=== PATIENT | female | born 1980 | race Caucasian/White ===

== ENCOUNTER 2018-03-18 17:18 | Emergency (ER) | payer OTHER ==
[2018-03-18 18:20] LABS: Absolute Lymphocytes (CBC) 3.2 K/uL (0.7-4.9); Absolute Monocytes 0.5 K/uL (0.1-1.3); Absolute Neutrophil 6.9 K/uL (1.8-8.0); Basophils % 1.6 % (0-1.3); Eosinophils % 3.2 % (0-4.4); Hematocrit 46.2 % (36.0-45.0); Lymphocytes % 28.7 % (15.3-44.8); MCV 95.7 fL (80-100); MPV 9.1 fL (7.6-11.3); Monocytes % 4.4 % (3.3-12.3); RBC Red Blood Cell Count 4.83 M/uL (3.86-4.86)
[2018-03-18 18:24] LABS: Protime INR 1.03
[2018-03-18 18:27] LABS: Barbiturates NEGATIVE; Benzodiazepines NEGATIVE; Cocaine NEGATIVE; METHAMPHETAM NEGATIVE; Opiates NEGATIVE; Phencyclidine NEGATIVE; THC Cannibis POSITIVE
[2018-03-18 18:28] LABS: Bicarbonate 26 mEq/L (21-31); Glucose Level 98 mg/dL (65-120); Potassium 3.5 mEq/L (3.6-5.0); Sodium Level 140 mEq/L (135-145)
[2018-03-18 18:34] LABS: ALT/SGPT 9 IU/L (10-60); AST/SGOT 13 IU/L (10-42); Albumin 3.8 g/dL (3.2-5.5); Alkaline Phosphatase 68 IU/L (42-121); BUN Blood Urea Nitrogen 11 mg/dL (6-20); Bilirubin Direct 0.1 mg/dL (0-0.2); Bilirubin Total 0.4 mg/dL (0.3-1.2); Protein, Total 6.6 g/dL (6.0-8.3)
[2018-03-18 18:40] LABS: Salicylates Level < 4.0 mg/dl (<30)
[2018-03-18 18:41] LABS: Alcohol Serum/Plasma < 10 mg/dl
[2018-03-18 18:43] LABS: Urine Blood NEGATIVE (NEG); Urine Glucose NEGATIVE (NEG); Urine Protein NEGATIVE (NEG); Urine Specific Gravity 1.025 (1.005-1.030)
[2018-03-18] MEDS ORDERED: POTASSIUM 25 MEQ EFFERV TAB ONE (18:52)
--- NOTE | 2018-03-19 00:49 | EDPHYS ---
Physician Documentation [facility] Name: Sade Mckeon Age: 37 yrs Sex: Female : 1980 Arrival Date: 03/18/2018 Time: 17:23 Bed 19 Private MD: Demetrio Beal ED Physician Rm Clemente HPI: 03/18 17:53 This 37 yrs old Female presents to ER via Ambulatory with complaints of Psych coleen Problem. 17:53 The patient presents to the emergency department with depression, over unknown coleen circumstances, suicide ideation. Onset: The symptoms/episode began/occurred 3 day(s) ago. Past psychiatric history: Prior diagnosis: bipolar disorder, schizophrenia, Psychiatric medications include: none. Associated signs and symptoms: The patient has no apparent associated signs or symptoms. Severity of symptoms: At their worst the symptoms were mild moderate in the emergency department the symptoms are unchanged. The patient has experienced similar episodes in the past, a few times. 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 - Social history:: Smoking status: Patient uses tobacco products, smokes one pack cigarettes per day. - Family history:: not pertinent. ROS: 17:53 Constitutional: Negative for fever, chills, and weight loss, Eyes: Negative for injury, coleen pain, redness, and discharge, ENT: Negative for injury, pain, and discharge, Neck: Negative for injury, pain, and swelling, Cardiovascular: Negative for chest pain, palpitations, and edema, Respiratory: Negative for shortness of breath, cough, wheezing, and pleuritic chest pain, Abdomen/GI: Negative for abdominal pain, nausea, vomiting, diarrhea, and constipation, Back: Negative for injury and pain, : Negative for injury, bleeding, discharge, and swelling, MS/Extremity: Negative for injury and deformity, Skin: Negative for injury, rash, and discoloration, Neuro: Negative for headache, weakness, numbness, tingling, and seizure, Allergy/Immunology: Negative for hives, rash, and allergies, Endocrine: Negative for neck swelling, polydipsia, polyuria, polyphagia, and marked weight changes, Hematologic/Lymphatic: Negative for swollen nodes, abnormal bleeding, and unusual bruising. 17:53 Psych: Positive for anxiety, depression, insomnia, suicidal ideation. Exam: 17:53 Constitutional: This is a well developed, well nourished patient who is awake, alert, coleen and in no acute distress. Head/Face: Normocephalic, atraumatic. Eyes: Pupils equal round and reactive to light, extra-ocular motions intact. Lids and lashes normal. Conjunctiva and sclera are non-icteric and not injected. Cornea within normal limits. Periorbital areas with no swelling, redness, or edema. ENT: Nares patent. No nasal discharge, no septal abnormalities noted. Tympanic membranes are normal and external auditory canals are clear. Oropharynx with no redness, swelling, or masses, exudates, or evidence of obstruction, uvula midline. Mucous membranes moist. Neck: Trachea midline, no thyromegaly or masses palpated, and no cervical lymphadenopathy. Supple, full range of motion without nuchal rigidity, or vertebral point tenderness. No Meningismus. Chest/axilla: Normal chest wall appearance and motion. Nontender with no deformity. No lesions are appreciated. Cardiovascular: Regular rate and rhythm with a normal S1 and S2. No gallops, murmurs, or rubs. Normal PMI, no JVD. No pulse deficits. Respiratory: Lungs have equal breath sounds bilaterally, clear to auscultation and percussion. No rales, rhonchi or wheezes noted. No increased work of breathing, no retractions or nasal flaring. Abdomen/GI: Soft, non-tender, with normal bowel sounds. No distension or tympany. No guarding or rebound. No evidence of tenderness throughout. Back: No spinal tenderness. No costovertebral tenderness. Full range of motion. Skin: Warm, dry with normal turgor. Normal color with no rashes, no lesions, and no evidence of cellulitis. MS/ Extremity: Pulses equal, no cyanosis. Neurovascular intact. Full, normal range of motion. Neuro: Awake and alert, GCS 15, oriented to person, place, time, and situation. Cranial nerves II-XII grossly intact. Motor strength 5/5 in all extremities. Sensory grossly intact. Cerebellar exam normal. Normal gait. Psych: Awake, alert, with orientation to person, place and time. Behavior, mood, and affect are within normal limits. Vital Signs: 17:33 BP 147 / 70; Pulse 82; Resp 19; Temp 98.8; Pulse Ox 100% on R/A; Weight 49.9 kg; Height la1 5 ft. 8 in. (172.72 cm); 19:19 BP 149 / 76; Pulse 59; Resp 16 S; Pulse Ox 98% on R/A; bb 22:37 BP 118 / 65 RA Supine (auto/reg); Pulse 61; Resp 16; Pulse Ox 97% on R/A; Pain 0/10; cc 03/19 01:07 BP 119 / 64; Pulse 62; Resp 16 S; Temp 98.9(O); Pulse Ox 96% on R/A; bb 03/18 17:33 Body Mass Index 16.73 (49.90 kg, 172.72 cm) la1 MDM: 03/18 17:40 Patient medically screened. [facility] 17:54 Data reviewed: vital signs, nurses notes, lab test result(s), EKG. [facility] 03/18 17:53 Order name: Acetaminophen [facility] 03/18 17:53 Order name: Basic Metabolic Panel [facility] 03/18 17:53 Order name: CBC with Diff; Complete Time: 18:41 [facility] 03/18 17:53 Order name: ETOH Level; Complete Time: 18:42 [facility] 03/18 17:53 Order name: Hepatic Function; Complete Time: 18:42 [facility] 03/18 17:53 Order name: PT-INR; Complete Time: 18:41 [facility] 03/18 17:53 Order name: Ptt, Activated; Complete Time: 18:41 [facility] 03/18 17:53 Order name: Salicylate; Complete Time: 18:42 [facility] 03/18 17:53 Order name: Urine Drug Screen; Complete Time: 18:41 [facility] 03/18 17:53 Order name: Acetaminophen Level; Complete Time: 18:42 [facility] 03/18 17:53 Order name: Basic Metabolic Panel; Complete Time: 18:42 [facility] 03/18 18:40 Order name: Urine Dipstick--Ancillary (enter results); Complete Time: 00:20 03/18 17:53 Order name: Urine Test (obtain specimen); Complete Time: 18:47 [facility] 03/18 17:53 Order name: EKG - Nurse/Tech; Complete Time: 18:47 [facility] 03/18 17:53 Order name: IV Saline Lock; Complete Time: 18:47 [facility] 03/18 17:53 Order name: Labs collected and sent; Complete Time: 18:47 [facility] 03/18 17:53 Order name: Urine Dipstick-Ancillary (obtain specimen); Complete Time: 18:47 [facility] Administered Medications: 18:47 Drug: Potassium Effervescent Tablet 25 mEq Route: PO; 19:19 Follow up: Response: No adverse reaction bb Disposition: 03/19/18 00:49 Transfer ordered to Psych Facility. Diagnosis is Suicidal ideations. - Reason for transfer: Higher level of care. - Accepting physician is [facility]. - Condition is Stable. - Problem is new. - Symptoms are unchanged. Signatures: Dispatcher [employer] EDMichelle Mitchell RN RN ch Anderson, Corey, MD MD cha Ballard, Brenda, RN RN bb Attema, Lee, RN RN la1 Rm Landaverde PA PA cp Corrections: (The following items were deleted from the chart) 03/19 00:52 00:49 03/19/2018 00:49 Transfer ordered to Psych Facility. Diagnosis is Suicidal cp ideations. Reason for transfer: Higher level of care. Accepting physician is psych. Condition is Stable. Problem is new. Symptoms are unchanged. cp 01:10 00:52 03/19/2018 00:49 Transfer ordered to Psych Facility. Diagnosis is Suicidal bb ideations. Reason for transfer: Higher level of care. Accepting physician is [facility]. Condition is Stable. Problem is new. Symptoms are unchanged. cp
--- NOTE | 2018-03-19 00:49 | ER ---
Nurse's Notes [facility] Name: Sade Mckeon Age: 37 yrs Sex: Female : 1980 Arrival Date: 03/18/2018 Time: 17:23 Bed 19 Private MD: Demetrio Beal Diagnosis: Suicidal ideations Presentation: 03/18 17:31 Presenting complaint: Patient states: I have been feeling very irritable and anxious la1 and I dont know why or for how long. Pt states she has been having thoughts of hurting herself lately but denies having a plan. Transition of care: patient was not received from another setting of care. Onset of symptoms was March 18, 2018. Initial Sepsis Screen: Does the patient meet any 2 criteria? No. Patient's initial sepsis screen is negative. Does the patient have a suspected source of infection? No. Patient's initial sepsis screen is negative. Care prior to arrival: None. 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 - Social history:: Smoking status: Patient uses tobacco products, smokes one pack cigarettes per day. - Family history:: not pertinent. Screenin:19 Abuse screen: Denies threats or abuse. Nutritional screening: No deficits noted. bb Tuberculosis screening: No symptoms or risk factors identified. Fall Risk None identified. Assessment: 19:19 General: Appears in no apparent distress. slender, Behavior is flat, Reports pt states bb she is feeling uncomfortable states her family brought her here and she is not sure why pt states she has tried to hurt herself in the past but does not respond to further questions. Pain: Denies pain. Neuro: Level of Consciousness is awake, alert, Oriented to person, place, time, situation. Cardiovascular: No deficits noted. Respiratory: Airway is patent Respiratory effort is even, unlabored, Respiratory pattern is regular. GI: No deficits noted. No signs and/or symptoms were reported involving the gastrointestinal system. Derm: Skin is pink, warm \T\ dry. Musculoskeletal: Circulation, motion, and sensation intact. 21:22 Reassessment: Patient and/or family updated on plan of care and expected duration. Pain bb level reassessed. Patient is alert, oriented x 3, equal unlabored respirations, skin warm/dry/pink. [facility] completed evaluation, family returned to bedside. 23:20 Reassessment: pt appears to be sleeping, eyes closed, resp unlabored, family at bedside, sitter at bedside, pt awaiting transfer to psychiatric facility for further evaluation and treatment. 23:53 Reassessment: nurse to nurse given to Julita BOWLING at [facility]. bb 03/19 00:02 Reassessment: nurse to nurse given to Ginna BOWLING with [facility]. bb 01:08 Reassessment: Patient is alert, oriented x 3, equal unlabored respirations, skin bb warm/dry/pink. EMS at bedside for transfer of pt to [facility], pt is cooperative transferred to [facility] unassisted. Psych: 03/18 17:33 Subjective: Patient's mood is sad, Delusions are denied, Hallucinations are denied la1 Having thoughts of suicide. Objective: Patient is cooperative, Speech is normal, Affect is appropriate. Interventions: Patient placed in hospital gown. Suicide Risk Assessment: Sad Person Scale: Sex of patient: Female: Score 0 points. Age of patient: Score 0 point if patient falls outside of specified age parameters. Depression: Score 1 point if signs of depression are present. Previous Attempt: Score 1 point if patient has previously attempted suicide. Substance Abuse: Score 0 point if patient does not abuse alcohol or drugs. Rational Thinking: Score 1 point if patient is lacking rational thinking. Social Support: Score 0 if social support is present/available. Organized Plan: Score 0 if patient did not have an organized plan in place. Relationship: Score 0 point if patient has a spouse or domestic partner. Chronic Sickness: Score 0 point if patient does not have a chronic illness, debilitating, or severe disorder. Safety Checks: Door is open. Pt denies substance abuse. Commitment: Patient will be a voluntary commitment. Vital Signs: 17:33 BP 147 / 70; Pulse 82; Resp 19; Temp 98.8; Pulse Ox 100% on R/A; Weight 49.9 kg; Height la1 5 ft. 8 in. (172.72 cm); 19:19 BP 149 / 76; Pulse 59; Resp 16 S; Pulse Ox 98% on R/A; bb 22:37 BP 118 / 65 RA Supine (auto/reg); Pulse 61; Resp 16; Pulse Ox 97% on R/A; Pain 0/10; cc 03/19 01:07 BP 119 / 64; Pulse 62; Resp 16 S; Temp 98.9(O); Pulse Ox 96% on R/A; bb 03/18 17:33 Body Mass Index 16.73 (49.90 kg, 172.72 cm) la1 ED Course: 03/18 17:23 Patient arrived in ED. sb2 17:23 Demetrio Beal MD is Private Physician. sb2 17:32 Triage completed. la1 17:33 Arm band placed on left wrist. la1 17:40 Rm Clemente MD is Attending Physician. coleen 17:55 Michelle Ibarra, DASH is Primary Nurse. ch 18:11 [facility] was called and spoke to Nahed she will pass the message on. ag 18:45 [facility] called and said they would be here in a couple of hours. 19:00 Safety Checks: Personal items have been removed The door is open or patient has been bb placed in a hallway bed/chair. A family member and/or friend is present and encouraged to stay family at bedside. 19:15 Safety Checks: Personal items have been removed The door is open or patient has been bb placed in a hallway bed/chair. There are no family/friend visitors at this time family states they are going outside. 19:15 Safety checks: Items removed: yes. Door open/sign placed on door: yes. Family/friend cc present: yes. 19:19 Patient has correct armband on for positive identification. Placed in gown. Bed in low bb position. Call light in reach. sitter at bedside. Patient is placed in psych hold. 19:30 Safety checks: Items removed: yes. Door open/sign placed on door: yes. Family/friend cc present: yes. 19:45 Safety checks: Items removed: yes. Door open/sign placed on door: yes. Family/friend cc present: yes. 20:00 Safety checks: Items removed: yes. Door open/sign placed on door: yes. Family/friend cc present: yes. 20:15 Safety checks: Items removed: yes. Door open/sign placed on door: yes. Family/friend cc present: yes. 20:29 Safety checks: Items removed: yes. Door open/sign placed on door: yes. Family/friend cc present: yes. 20:45 Safety checks: Items removed: yes. Door open/sign placed on door: yes. Family/friend cc present: yes. 20:52 [place] screener at bedside. cc 21:00 Safety checks: Items removed: yes. Door open/sign placed on door: no. Family/friend cc present: no. Door closed while [place] Screener is evaluating patient. 21:15 Safety checks: Items removed: yes. Door open/sign placed on door: no. Family/friend cc present: no. [place] screener at bedside evaluating patient. 21:30 Safety checks: Items removed: yes. Door open/sign placed on door: yes. Family/friend cc present: yes. 21:45 Safety checks: Items removed: yes. Door open/sign placed on door: yes. Family/friend cc present: yes. 22:00 Safety checks: Items removed: yes. Door open/sign placed on door: yes. Family/friend cc present: yes. 22:10 [facility] at bedside. cc 22:14 Safety checks: Items removed: yes. Door open/sign placed on door: yes. Family/friend cc present: no. 22:30 Safety checks: Items removed: yes. Door open/sign placed on door: yes. Family/friend cc present: yes. 22:45 Safety checks: Items removed: yes. Door open/sign placed on door: yes. Family/friend cc present: yes. 23:00 Safety checks: Items removed: yes. Door open/sign placed on door: yes. Family/friend cc present: yes. 23:14 Safety checks: Items removed: yes. Door open/sign placed on door: yes. Family/friend cc present: yes. 23:30 Safety checks: Items removed: yes. Door open/sign placed on door: yes. Family/friend cc present: yes. 23:45 Safety checks: Items removed: yes. Door open/sign placed on door: yes. Family/friend cc present: yes. 23:56 Puma Veliz (son) contact number- [phone]; Juan Heard (brother) [phone].cc 03/19 00:00 Safety checks: Items removed: yes. Door open/sign placed on door: yes. Family/friend cc present: no. 00:15 Safety checks: Items removed: yes. Door open/sign placed on door: yes. Family/friend cc present: no. 00:19 [facility] aleksandra 00:30 Safety checks: Items removed: yes. Door open/sign placed on door: yes. Family/friend cc present: no. 00:45 Safety checks: Items removed: yes. Door open/sign placed on door: yes. Family/friend cc present: no. 01:01 No provider procedures requiring assistance completed. IV discontinued, intact, bb bleeding controlled, No redness/swelling at site. Pressure dressing applied. Administered Medications: 03/18 18:47 Drug: Potassium Effervescent Tablet 25 mEq Route: PO; 19:19 Follow up: Response: No adverse reaction bb Outcome: 03/19 00:49 ER care complete, transfer ordered by . cp 01:09 Transferred by ground EMS Transfer form completed. bb 01:09 Condition: stable 01:09 Instructed on the need for transfer. 01:10 Patient left the ED. bb Signatures: Michelle Ibarra, DASH RN Rm Jimenez MD MD cha Ballard, Brenda, RN RN bb Christian, Chelsea cc Denzel Petersen RN RN la1 Giana Mari Corey, PA PA cp Billeau, Sheri sb2 Corrections: (The following items were deleted from the chart) 03/18 23:58 23:56 Puma Veliz (son) contact number- [phone] cc cc 03/19 01:00 00:02 Reassessment: nurse to nurse given to Ginna BOWLING with [facility] bb bb
[2018-03-19 01:36] VITALS: BP 119/64; TEMP 98.9; O2SAT 96
== END 2018-03-19 01:10 ==
LOC: ER 17:18
DX: R45.851 Suicidal ideations (principal); F17.210 Nicotine dependence, cigarettes, uncomplicated; F31.9 Bipolar disorder, unspecified; Z88.0 Allergy status to penicillin; Z88.2 Allergy status to sulfonamides; Z91.048 Other nonmedicinal substance allergy status
CPT/HCPCS: 36415; 80048; 80076; 80307; 80320; 80329; 81003; 85025; 85610; 85730; 99285

== ENCOUNTER 2024-10-22 17:40 | Inpatient (IN) | payer OTHER ==
--- OUTSIDE RECORDS SUMMARY | 2024-10-22 17:43 | XMS REPORT | Continuity of Care Document ---
Author Name Unknown Address [address] [facility] [address] [place] [address] [facility] Address [address] [facility]. 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 Role Phone Demetrio Beal Primary Care Physician [phone] Patricia Davison MD Attending Clinician [phone] CARLEY REYNA Attending Clinician Unavailable Carley Stacy Attending Clinician + [phone] Carley Stacy Attending Clinician + [phone] Patricia Davison MD Attending Clinician [phone] SERGIO DO Attending Clinician Unavaila ble [facility] Attending Clinician Unavailable Sergio Do MD Attending Clinician [phone] Doctor Unassigned, [place] Attending Clinician U navailable Lab, Ang - Db Attending Clinician Unavailable Marie FENTON Attending Clinician Unavailable Marie Dominguez Attending Clinician + [phone] David Hamilton Attending Clinician [phone] Toya Leo Attending Clinician [phone] TOYA THORNTON Attending Clinician Unavailable Payers Payer Name Policy Type Policy Number Effective Date Expirati on Date Source [facility] PL[facility] [id number] 00:00:00 [facility] [id number] 2022 00:00:00 Problems Condition Name Condition Details Condition Category Status Onset Date Resolution Date Last Treatment Date Treating Clinician Comments Source Bipolar I disorder, most recent episode (or current) depressed, severe, without mention of psychotic behavior Bipolar I disorder, most recent episode (or current) depressed, severe, without mention of psychotic behavior Disease Active 07-09 00:00: 00 [facility] Bipolar I disorder, most recent episode (or current) depressed, severe, specified as with psychotic behavior Bipolar I disorder, most recent episode (or current) depressed, severe, specified as with psychotic behavior Disease Active 01-05 00:00: 00 [facility] Allergies, Adverse Reactions, Alerts Allergy Name Allergy Type Status Severity Reaction(s) Onset Date Inactive Date Treating Clinician Comments Source VENLAFAX INE HCL DRUG INGREDI Active Anxiety 01-05 00:00: 00 [facility] IODINE DRUG INGREDI Active Unknown-Cmnt 01-05 00:00: 00 [facility] PENICILL INS Drug Class Active Unknown-Cmnt 01-05 00:00: 00 [facility] SULFA (SULFONA MIDE ANTIBIOT ICS) Drug Class Active Unknown-Cmnt 01-05 00:00: 00 [facility] Penicill ins Propensi ty to adverse reaction s Active Unknown - See comments 01-05 00:00: 00 Had reaction as a child. Doesn't remember what. [facility] Sulfa (Sulfona mide Antibiot ics) Propensi ty to adverse reaction s Active Unknown - See comments 01-05 00:00: 00 As a child [facility] Venlafax ine Hcl Propensi ty to adverse reaction s Active Anxiety 01-05 00:00: 00 [facility] Iodine Propensi ty to adverse reaction s Active Unknown - See comments 01-05 00:00: 00 [facility] Penicill ins Propensi ty to adverse reaction s Active Unknown - See comments 01-05 00:00: 00 Had reaction as a child. Doesn't remember what. [facility] Sulfa (Sulfona mide Antibiot ics) Propensi ty to adverse reaction s Active Unknown - See comments 01-05 00:00: 00 As a child [facility] Social History Social Habit Start Date Stop Date Quantity Comments Source Gender [facility] History of tobacco use Cigarette Smoker [facility] Exposure to SARS-CoV-2 (event) Not sure [facility] History of Social function 2024-10-10 00:00:00 2024-10-10 00:00:00 [facility] Alcoholic beverage intake 2024-10-10 00:00:00 2024-10-10 00:00:00 Ex-drinker (finding) [facility] Cigarettes smoked current (pack per day) - Reported 2024-05-08 00:00:00 2024-05-08 00:00:00 [facility] Cigarette pack-years 2024-05-08 00:00:00 2024-05-08 00:00:00 [facility] Tobacco use and exposure 2024-05-08 00:00:00 2024-05-08 00:00:00 Smokeless tobacco non-user [facility] Alcohol intake 2024-01-25 00:00:00 2024-01-25 00:00:00 Ex-drinker (finding) [facility] Sex assigned at 1980 00:00:00 1980 00:00:00 [facility] Smoking Status Start Date Stop Date Source Smokes tobacco daily 2024-05-08 00:00:00 [facility] Tobacco smoking consumption unknown [facility] Medications Ordered Medication Name Filled Medication Name Start Date Stop Date Current Medication? Ordering Clinician Indication Dosage Frequency Signature (SIG) Comments Components Source clindamycin 300 mg capsule 2023-10 00:00: 00 Yes [id number] 300mg Take 1 capsule by mouth 4 (four) times daily. [facility] SERTraline (ZOLOFT) 100 mg tablet 05-08 12:44: 50 Yes 200mg Take 2 tablets by mouth in the morning. [facility] clindamycin 300 mg capsule 05-08 00:00: 00 05-16 04:59 :00 No [id number] 300mg Take 1 capsule by mouth 4 (four) times daily for 7 days. [facility] azelastine 137 mcg (0.1 %) nasal spray 11-17 00:00: 00 Yes [id number] 1{spray } Use 1 [place] in each nostril in the morning and 1 [place] in the evening. Use in each nostril as directed [facility] montelukast 10 mg tablet 11-17 00:00: 00 Yes [id number] 10mg Take 1 tablet by mouth in the morning. [facility] OLANZapine 10 mg tablet 11-02 00:00: 00 Yes 10mg Take 1 tablet by mouth at bedtime. [facility] AMBIEN ORAL 11-01 09:04: 45 11-01 00:00 :00 No None Entered [facility] ATIVAN ORAL 11-01 09:04: 39 11-01 00:00 :00 No None Entered [facility] LITHIUM ASPARTATE ORAL 11-01 09:04: 33 11-01 00:00 :00 No None Entered [facility] GEODON ORAL 11-01 09:03: 49 11-01 00:00 :00 No None Entered [facility] COUMADIN ORAL 11-01 09:03: 31 11-01 00:00 :00 No None Entered [facility] SERTraline (ZOLOFT) 100 mg tablet 11-01 09:03: 10 Yes 200mg Take 2 tablets by mouth in the morning. [facility] Omeprazole 20 mg tablet 11-01 00:00: 00 Yes [id number] 20mg Take 1 tablet by mouth in the morning. [facility] omeprazole 20 mg capsule 11-01 00:00: 00 Yes TAKE 1 CAPSULE BY MOUTH IN THE MORNING [facility] ibuprofen 600 mg tablet 30 00:00: 00 11-01 00:00 :00 No [id number] 600mg Take 1 tablet by mouth every 6 (six) hours as needed for Pain (scale 4-6). [facility] clindamycin 150 mg capsule 830 00:00: 00 07-09 04:59 :00 No [id number] 300mg Take 2 capsules by mouth 4 (four) times daily for 10 days. [facility] clindamycin (CLEOCIN) injection 600 mg 04-05 17:15: 00 04-05 16:48 :00 No 600mg 600 mg, Intramuscu lar, ONCE, 1 dose, 04/05/21 at 1215, YUNIOR
Re ason for Anti-Infec tive: Documented Infection< br>Documen rochelle Infection Site: Other
O ther site: tooth
D uration of Therapy: 7 days
Re stricted use approved by: ED PROVIDER<b r>Indicati on for Clindamyci n use: tooth infection [facility] acetaminoph en (TYLENOL) tablet 1,000 mg 04-05 17:15: 00 04-05 16:45 :00 No 1000mg 1,000 mg, Oral, ONCE, 1 dose, 04/05/21 at 1215, Routine [facility] ibuprofen 800 mg tablet 04-05 00:00: 00 11-01 00:00 :00 No [id number] 800mg Take 1 tablet by mouth every 6 (six) hours as needed for Pain (scale 4-6). [facility] clindamycin 300 mg capsule 04-05 00:00: 00 04-13 04:59 :00 No [id number] 300mg Take 1 capsule by mouth 4 (four) times daily for 7 days. [facility] clindamycin in 5 % dextrose (CLEOCIN) 600 mg/50 mL IV piggyback RTU 600 mg 01-05 20:30: 00 01-05 20:09 :00 No 600mg 600 mg, IV Piggyback, ONCE, 1 dose, 01/05/21 at 1430, 50 mL
Reas on for Anti-Infec tive: Documented Infection< br>Documen rochelle Infection Site: HEENT
D uration of Therapy: Other (see Comments)< br>Restric rochelle use approved by: ED PROVIDER<b r>Indicati on for Clindamyci n use: dental abscess [facility] proMETHazin e (PHENERGAN) tablet 25 mg 01-05 20:30: 00 01-05 19:40 :00 No 25mg 25 mg, Oral, ONCE, 1 dose, 01/05/21 at 1430, YUNIOR [facility] FENTanyl PF (SUBLIMAZE (PF)) injection 50 mcg 01-05 20:30: 00 01-05 19:40 :00 No 50ug 50 mcg, Slow IV Push, ONCE, 1 dose, 01/05/21 at 1430, Routine [facility] dexamethaso ne (DECADRON PHOSPHATE) injection 10 mg 01-05 20:30: 00 01-05 19:40 :00 No 10mg 10 mg, IV Push, ONCE, 1 dose, 01/05/21 at 1430, STAT [facility] chlorhexidi ne 0.12 % mouthwash 01-05 00:00: 00 11-01 00:00 :00 No [id number] 15mL Swish and spit out 15 mL 2 (two) times daily. [facility] clindamycin 150 mg capsule 01-05 00:00: 01-16 04:59 :00 No [id number] 450mg Take 3 capsules by mouth 3 (three) times daily for 10 days. [facility] acetaminoph en-codeine 300-30 mg tablet 01-05 00:00: 00 01-13 04:59 :00 No [id number] 1{tbl} Take 1 tablet by mouth every 6 (six) hours as needed for Pain (scale 7-10) for up to 7 days. Indication s: acute pain [facility] ketorolac (TORADOL) injection 60 mg 2019-10 00:30: 00 08-30 23:36 :00 No 60mg 60 mg, Intramuscu lar, ONCE, 1 dose, 08/30/20 at 1830, [facility]UNIOR
[facility] Restricted medication : Marie FENTON [facility] clindamycin (CLEOCIN HCL) capsule 300 mg 2019-10 00:30: 00 08-30 23:35 :00 No 300mg 300 mg, Oral, ONCE, 1 dose, 08/30/20 at 1830, YUNIOR
Re ason for Anti-Infec tive: Documented Infection< br>Documen rochelle Infection Site: HEENT
D uration of Therapy: 10 days
Re stricted use approved by: ADC PROVIDER [facility] ibuprofen 600 mg tablet 2019-10 00:00: 00 11-01 00:00 :00 No [id number] 600mg Take 1 tablet by mouth every 6 (six) hours as needed for Pain (scale 4-6). [facility] clindamycin 150 mg capsule 2019-10 00:00: 00 09-10 05:59 :00 No [id number] 300mg Take 2 capsules by mouth 4 (four) times daily for 10 days. [facility] GEODON ORAL 2014-10 18:20: 48 Yes None Entered [facility] AMBIEN ORAL 2014-10 18:20: 48 Yes None Entered [facility] COUMADIN ORAL 2014-10 18:20: 48 Yes None Entered [facility] ATIVAN ORAL 2014-10 18:20: 48 Yes None Entered [facility] LITHIUM ASPARTATE ORAL 2014-10 18:20: 48 Yes None Entered [facility] COUMADIN ORAL 2014-10 12:20: 48 Yes None Entered [facility] ZIPRASIDONE HCL 40 MG ORAL CAP 07-11 00:00: 00 Yes 1 Cap Oral BID MEALS [facility] QUETIAPINE 25 MG ORAL TAB 07-11 00:00: 00 11-01 00:00 :00 No 1 Tab Oral TIDPRN [facility] ESCITALOPRA M 10 MG ORAL TAB 07-11 00:00: 00 11-01 00:00 :00 No 3 tabs oral daily [facility] Vital Signs Vital Name Observation Time Observation Value Comments S ource Systolic blood pressure 2024-10-10 21:20:00 108 mm[Hg] [facility] Diastolic blood pressure 2024-10-10 21:20:00 72 mm[Hg] [facility] Heart rate 2024-10-10 21:20:00 71 /min [facility] Body temperature 2024-10-10 21:20:00 36.89 Deb [facility] Body height 2024-10-10 21:20:00 172.7 cm [facility] Body weight 2024-10-10 21:20:00 70.761 kg [facility] BMI 2024-10-10 21:20:00 23.72 kg/m2 [facility] Oxygen saturation in Arterial blood by Pulse oximetry 2024-10-10 21:20:00 97 /min [facility] Systolic blood pressure 2024-05-08 17:45:00 114 mm[Hg] [facility] Diastolic blood pressure 2024-05-08 17:45:00 68 mm[Hg] [facility] Heart rate 2024-05-08 17:45:00 61 /min [facility] Body temperature 2024-05-08 17:45:00 36.83 Deb [facility] Respiratory rate 2024-05-08 17:45:00 18 /min [facility] Body height 2024-05-08 17:45:00 172.7 cm [facility] Body weight 2024-05-08 17:45:00 78.472 kg [facility] BMI 2024-05-08 17:45:00 26.30 kg/m2 [facility] Oxygen saturation in Arterial blood by Pulse oximetry 2024-05-08 17:45:00 96 /min [facility] Systolic blood pressure 2024-01-25 14:41:00 126 mm[Hg] [facility] Diastolic blood pressure 2024-01-25 14:41:00 57 mm[Hg] [facility] Heart rate 2024-01-25 14:41:00 73 /min [facility] Body temperature 2024-01-25 14:41:00 36 Deb [facility] Respiratory rate 2024-01-25 14:41:00 17 /min [facility] Body height 2024-01-25 14:41:00 172.7 cm [facility] Body weight 2024-01-25 14:41:00 80.74 kg [facility] BMI 2024-01-25 14:41:00 27.06 kg/m2 [facility] Oxygen saturation in Arterial blood by Pulse oximetry 2024-01-25 14:41:00 97 /min [facility] Systolic blood pressure 2023-11-17 19:53:00 124 mm[Hg] [facility] Diastolic blood pressure 2023-11-17 19:53:00 76 mm[Hg] [facility] Heart rate 2023-11-17 19:53:00 69 /min [facility] Body temperature 2023-11-17 19:53:00 36.5 Deb [facility] Body height 2023-11-17 19:53:00 172.7 cm [facility] Body weight 2023-11-17 19:53:00 79.334 kg [facility] BMI 2023-11-17 19:53:00 26.59 kg/m2 [facility] Oxygen saturation in Arterial blood by Pulse oximetry 2023-11-17 19:53:00 98 /min [facility] Systolic blood pressure 2023-11-01 14:53:00 124 mm[Hg] [facility] Diastolic blood pressure 2023-11-01 14:53:00 76 mm[Hg] [facility] Heart rate 2023-11-01 14:53:00 85 /min [facility] Body temperature 2023-11-01 14:53:00 36.67 Deb [facility] Respiratory rate 2023-11-01 14:53:00 18 /min [facility] Body height 2023-11-01 14:53:00 172.7 cm [facility] Body weight 2023-11-01 14:53:00 80.695 kg [facility] BMI 2023-11-01 14:53:00 27.05 kg/m2 [facility] Oxygen saturation in Arterial blood by Pulse oximetry 2023-11-01 14:53:00 97 /min [facility] Systolic blood pressure 2023-06-28 13:22:00 141 mm[Hg] [facility] Diastolic blood pressure 2023-06-28 13:22:00 70 mm[Hg] [facility] Heart rate 2023-06-28 13:22:00 78 /min [facility] Body temperature 2023-06-28 13:22:00 36.72 Deb [facility] Respiratory rate 2023-06-28 13:22:00 18 /min [facility] Body height 2023-06-28 13:22:00 172.7 cm [facility] Body weight 2023-06-28 13:22:00 68.04 kg [facility] BMI 2023-06-28 13:22:00 22.81 kg/m2 [facility] Oxygen saturation in Arterial blood by Pulse oximetry 2023-06-28 13:22:00 99 /min [facility] Systolic blood pressure 2021-04-05 14:51:00 116 mm[Hg] [facility] Diastolic blood pressure 2021-04-05 14:51:00 70 mm[Hg] [facility] Heart rate 2021-04-05 14:51:00 61 /min [facility] Body temperature 2021-04-05 14:51:00 37.11 Deb [facility] Respiratory rate 2021-04-05 14:51:00 16 /min [facility] Body weight 2021-04-05 14:51:00 70.353 kg [facility] BMI 2021-04-05 14:51:00 23.58 kg/m2 [facility] Oxygen saturation in Arterial blood by Pulse oximetry 2021-04-05 14:51:00 97 /min [facility] Systolic blood pressure 2021-01-05 21:14:20 102 mm[Hg] [facility] Diastolic blood pressure 2021-01-05 21:14:20 67 mm[Hg] [facility] Heart rate 2021-01-05 21:14:20 64 /min [facility] Respiratory rate 2021-01-05 21:14:20 12 /min [facility] Oxygen saturation in Arterial blood by Pulse oximetry 2021-01-05 21:14:20 98 /min [facility] Body temperature 2021-01-05 18:20:00 37.22 Deb [facility] Body weight 2021-01-05 18:20:00 77.111 kg [facility] BMI 2021-01-05 18:20:00 25.85 kg/m2 [facility] Systolic blood pressure 2020-08-30 23:11:00 123 mm[Hg] [facility] Diastolic blood pressure 2020-08-30 23:11:00 79 mm[Hg] [facility] Heart rate 2020-08-30 23:11:00 73 /min [facility] Body temperature 2020-08-30 23:11:00 37.44 Deb [facility] Respiratory rate 2020-08-30 23:11:00 16 /min [facility] Body height 2020-08-30 23:11:00 172.7 cm [facility] Body weight 2020-08-30 23:11:00 77.111 kg [facility] BMI 2020-08-30 23:11:00 25.85 kg/m2 [facility] Oxygen saturation in Arterial blood by Pulse oximetry 2020-08-30 23:11:00 96 /min [facility] Procedures Procedure Date / Time Performed Performing Clinicia n Source LIPASE 2023-11-01 15:25:00 Carley Reyna [facility] COMP. METABOLIC PANEL ([id number]) 2023-11-01 15:25:00 Carley Reyna [facility] CBC WITH DIFF 2023-11-01 15:25:00 Carley Reyna [facility] POCT TEST 2023-11-01 15:16:00 Carley Reyna [facility] CONSENT/REFUSAL FOR DIAGNOSIS AND TREATMENT 2023-11-01 14:18:58 Doctor Unassigned, [place] [facility] CONSENT/REFUSAL FOR DIAGNOSIS AND TREATMENT 2023-06-28 13:13:25 Doctor Unassigned, [place] [facility] CONSENT/REFUSAL FOR DIAGNOSIS AND TREATMENT 2021-04-05 14:43:34 Doctor Unassigned, [place] [facility] CT MAXILLOFACIAL/MANDIBL E WO CONTRAST 2021-01-05 21:11:14 Toya Thornton [facility] TEST, SERUM 2021-01-05 19:29:00 Darrin Thornton [facility] COMP. METABOLIC PANEL ([id number]) 2021-01-05 19:29:00 Toya Thornton [facility] CBC WITH DIFF 2021-01-05 19:29:00 Toya Thornton [facility] NOTICE OF PRIVACY PRACTICES 2021-01-05 18:18:19 Doctor Unassigned, [place] [facility] CONSENT/REFUSAL FOR DIAGNOSIS AND TREATMENT 2021-01-05 18:17:52 Doctor Unassigned, [place] [facility] POCT TEST 2020-08-30 23:35:00 Marie Fenton [facility] Encounters Start Date/Time End Date/Time Encounter Type Admission Type Attending [facility] Care Facility Care Department Encounter ID Source 2024-10-14 00:00:00 2024-10-16 12:22:52 Telephone Patricia Davison [facility] [id number] 350.1.13.10 4.2.7.2.686 [id number] [facility] 2024-10-10 15:30:00 2024-10-10 16:02:38 Outpatient R CARLEY REYNA [facility] [id number] [facility] 2024-10-10 15:30:00 2024-10-10 16:02:38 Office Visit Carley Reyna [facility] 1..840.114 350.1.13.10 4.2.7.2.686 [id number] [facility] 2024-05-08 13:00:00 2024-05-08 13:13:31 Outpatient R CARLEY REYNA [facility] [id number] [facility] 2024-05-08 13:00:00 2024-05-08 13:13:31 Office Visit Carley Reyna [facility] 1..840.114 350.1.13.10 4.2.7.2.686 [id number] [facility] 2024-04-03 00:00:00 2024-04-04 10:18:14 Telephone Patricia Davison [facility] 1.840.114 350.1.13.10 4.2.7.2.686 [id number] [facility] 2024-02-07 00:00:00 2024-02-07 00:00:00 Outpatient R SERGIO DO [facility] [id number] [facility] 2024-01-25 10:30:00 2024-01-25 10:45:00 Die Setter Visit [facility] Sergio Do [facility] 1.840.114 350.1.13.10 4.2.7.2.686 [id number] [facility] 2024-01-25 10:00:00 2024-01-25 10:30:00 Office Visit Patricia Davison Joseph Marc [facility] 1.0.114 350.1.13.10 4.2.7.2.686 [id number] [facility] 2024-01-25 10:00:00 2024-01-25 10:00:00 Outpatient Hector SERGIO DO [facility] [id number] [facility] 2023-11-23 00:00:00 2023-11-23 00:00:00 Patient Secure Msg Doctor Unassigned, [place] [facility] 1.2840.114 350.1.13.10 4.2.7.2.686 [id number] [facility] 2023-11-21 00:00:00 2023-11-21 00:00:00 Patient Secure Msg Doctor Unassigned, [place] [facility] 1.2.840.114 350.1.13.10 4.2.7.2.686 [id number] [facility] 2023-11-20 00:00:00 2023-11-20 00:00:00 Patient Secure Msg Doctor Unassigned, [place] [facility] 1.2.840.114 350.1.13.10 4.2.7.2.686 [id number] [facility] 2023-11-17 14:30:00 2023-11-17 14:45:00 Die Setter Visit Lab, Carley Viveros [facility] 1.2.840.114 350.1.13.10 4.2.7.2.686 [id number] [facility] 2023-11-17 14:00:00 2023-11-17 14:19:47 Outpatient CARLEY ABREU [facility] [id number] [facility] 2023-11-17 14:00:00 2023-11-17 14:19:47 [facility] [id number] 350.1.13.10 4.2.7.2.686 [id number] [facility] 2023-11-08 00:00:00 2023-11-08 00:00:00 Patient Secure Msg Doctor Unassigned, [place] [facility] 1.20.114 350.1.13.10 4.2.7.2.686 [id number] [facility] 2023-11-05 00:00:00 2023-11-05 00:00:00 Telephone Carley Reyna Jona [facility] 1.284.114 350.1.13.10 4.2.7.2.686 [id number] [facility] 2023-11-01 09:30:00 2023-11-01 10:18:53 Die Setter Visit Lab, Ang - Db Carley Reyna Jona [facility] 1.284.114 350.1.13.10 4.2.7.2.686 [id number] [facility] 2023-11-01 08:00:00 2023-11-01 09:17:09 Outpatient R CARLEY REYNA [facility] [id number] [facility] 2023-11-01 08:00:00 2023-11-01 09:17:09 Office Visit Mendez Carley A [facility] [id number] 350.1.13.10 4.2.7.2.686 [id number] [facility] 2023-11-01 00:00:00 2023-11-01 00:00:00 Orders Only Doctor Unassigned, [place] [facility] 1.2.840.114 350.1.13.10 4.2.7.2.686 [id number] [facility] 2023-11-01 00:00:00 2023-11-01 00:00:00 Letter (Out) Doctor Unassigned, [place] [facility] 1.2.840.114 350.1.13.10 4.2.7.2.686 [id number] [facility] 2023-11-01 00:00:00 2023-11-01 00:00:00 Letter (Out) Doctor Unassigned, [place] [facility] 1.2.840.114 350.1.13.10 4.2.7.2.686 [id number] [facility] 2023-06-28 08:23:00 2023-06-28 09:29:00 Emergency X Marie FENTON [facility] ERT [id number] [facility] 2023-06-28 08:23:00 2023-06-28 09:29:00 Emergency Marie Fenton [facility] 1.2.840.114 350.1.13.10 4.2.7.2.686 [id number] [facility] 2021-04-05 09:53:00 2021-04-05 12:16:00 Emergency David Jaramillo [facility] [id number] [facility] 2021-04-05 09:43:00 2021-04-05 09:43:00 Emergency X [facility] ERT [id number] [facility] 2021-01-05 12:21:00 2021-01-05 16:52:00 Emergency Toya Thornton [facility] [id number] [facility] 2021-01-05 12:21:00 2021-01-05 12:21:00 Emergency X TOYA THORNTON [facility] ERT [id number] [facility] 2020-08-30 17:18:00 2020-08-30 17:52:00 Emergency Marie Fenton [facility] [id number] [facility] 2020-08-30 17:18:00 2020-08-30 17:18:00 Emergency X Marie FENTON [facility] ERT [id number] [facility] Results Test Description Test Time Test Comments Results Result Co mments Source [facility] [id number] 15:21:00* Test Item Value Reference Range Interpretation Comme nts POCT PREG (test code = 1605) Negative On board controls acceptable with C Line (test code = 3574) Yes POCT PREG LOT # (test code = 3575) POCT PREG TEST DATE ( test code = 3576) Lab Interpretation (test cod e = 74581-6) Normal [facility] CONTRAST 2021-01-05 21:20:31Impression: 1. ?No acute abnormality involving the maxillofacial region.Exam: CT MAXILLOFACIAL/MANDIBLE WO CONTRAST Clinical History: Maxillary/facial abscess Technique:Thin section CT of the maxillofacial region with multiplanarreformats Comparison: No priors Findings: The mandible is within normal limits. Bilateral zygomatic archesare within normal limits. Lateral orbital rims are normal. Lamina papyracea are within normal limits. Nasal bones are normal.Periodontal disease involves the right first maxillary molar tooth root.Included portions of the brain are within normal limits. Orbits arenormalin appearance. Skull base is within normal limits. Soft tissue windows do not demonstrate anyfocal lesions. [facility], [facility]iant Results Inft User - 01/05/2021 3:21 PM CSTExam: CT MAXILLOFACIAL/MANDIBLE WO CONTRASTClinical History: Maxillary/facial abscess Technique:Thin section CT of the maxillofacial region with multiplanarreformatsComparison: No priorsFindings: The mandible is within normal limits. Bilateral zygomatic archesare within normal limits.Lateral orbital rims are normal.Lamina papyracea are within normal limits.Nasal bones are normal.Periodontal disease involves the right first maxillary molar tooth root.Included portions of the brain are within normal limits. Orbits are normali n appearance. Skull base is within normal limits.Soft tissue windows do not demonstrate any focal lesions.IMPRESSIONImpression:1. No acute abnormality involving the maxillofacial region.[facility], [id number] 20:50:51* Test Item Value Reference Range Interpretation Comme nts PREG SERUM (test code = 3213952687) Negative DASHAWN (test code = DASHAWN) Less than 10 IU/L. ?If low titer or ectopic is suspected, resubmit specimen in 48-72 hours. [facility]. METABOLIC PANEL (13912)2021-01-05 19:58:23* Test Item Value Reference Range Interpretation Comme nts NA (test code = 0337777244) 139 mmol/L 135-145 K (test code = 9508795107) 3.8 mmol/L 3.5-5.0 CL (test code = 0305829098) 106 mmol/L 98-108 CO2 TOTAL (test code = 0448822442) 26 mmol/L 23-31 AGAP (test code = 6121893864) 2-16 BUN (test code = 0239015634) 8 mg/dL 7-23 GLUCOSE (test code = 3919187074) 106 mg/dL 70-110 CREATININE (test code = 5500687781) 0.66 mg/dL 0.50-1.04 TOTAL BILI (test code = 4216848540) 0.6 mg/dL 0.1-1.1 CALCIUM (test code = 2923034958) 9.3 mg/dL 8.6-10.6 T PROTEIN (test code = 4074438692) 7.0 g/dL 6.3-8.2 ALBUMIN (test code = 2851966159) 4.3 g/dL 3.5-5.0 ALK PHOS (test code = 1552579677) 94 U/L 34-122 ALTv (test code = 1742-6) 11 U/L 5-35 AST(SGOT) (test code = 7767267600) 17 U/L 13-40 eGFR Calculation (Non-) (test code = 3948261289) mL/min/1.73m2 eGFR Calculation () (test code = 7204730836) mL/min/1.73m2 DASHAWN (test code = DASHAWN) Association of Glomerular Filtration Rate (GFR) and Staging of Kidney Disease* + -+ + ---+| GFR (mL/min/1.73 m2) ?| With Kidney Damage ?| ?Without Kidney Damage+ -------+ ------+ ---------+| ?>90 ?| ?Stage one ?| ? Normal ?+ --+ -+ ----+| ?60-89 ?| ?Stage two ?| ? Decreased GFR ? + -+ + ---+| ?30-59 ?| ?Stage three ?| ? Stage three ? + -+ + ---+| ?15-29 ?| ?Stage four ? | ? Stage four ?+ --+ -+ ----+| ?<15 (or dialysis) ? ?| ?Stage five ? | ? Stage five ?+ --+ -+ ----+ *Each stage assumes the associated GFR level has been in effect for at least three months. ?Stages 1 to 5, with or without kidney disease, indicate chronic kidney disease. Notes: Determination of stages one and two (with eGFR >59mL/min/1.73 m2) requires estimation of kidney damage for at least three months as defined by structural or functional abnormalities of the kidney, manifested by either:Pathological abnormalities or Markers of kidney damage (including abnormalities in the composition of the blood or urine or abnormalities in imaging tests). [facility] WITH [id number] 19:43:23* Test Item Value Reference Range Interpretation Comme nts WBC (test code = 6690-2) See_Comment H [Automated message] The system which generated this result transmitted reference range: 4.30 - 11.10 10*3/?L. The reference range was not used to interpret this result as normal/abnormal. RBC (test code = 789-8) See_Comment [Automated message] The system which generated this result transmitted reference range: 3.93 - 5.25 10*6/?L. The reference range was not used to interpret this result as normal/abnormal. HGB (test code = 718-7) 14.8 g/dL 11.6-15.0 HCT (test code = 4544-3) 43.4 % 35.7-45.2 MCV (test code = 787-2) 91.8 fL 80.6-95.5 MCH (test code = 785-6) 31.3 pg 25.9-32.8 MCHC (test code = 786-4) 34.1 g/dL 31.6-35.1 RDW-SD (test code = 48279-5) 43.1 fL 39.0-49.9 RDW-CV (test code = 788-0) 12.7 % 12.0-15.5 PLT (test code = 777-3) See_Comment L [Automated message] The system which generated this result transmitted reference range: 166 - 358 10*3/?L. The reference range was not used to interpret this result as normal/abnormal. MPV (test code = 53421-2) 10.3 fL 9.5-12.9 NRBC/100 WBC (test code = 0366072449) See_Comment [Automated message] The system which generated this result transmitted reference range: 0.0 - 10.0 /100 WBCs. The reference range was not used to interpret this result as normal/abnormal. NRBC x10^3 (test code = 8048871707) <0.01 See_Comment [Automated message] The system which generated this result transmitted reference range: 10*3/?L. The reference range was not used to interpret this result as normal/abnormal. GRAN MAT (NEUT) % (test code = 770-8) 73.8 % IMM GRAN % (test code = 9966798135) 0.50 % LYMPH % (test code = 736-9) 18.1 % MONO % (test code = 5905-5) 5.5 % EOS % (test code = 713-8) 1.7 % BASO % (test code = 706-2) 0.4 % GRAN MAT x10^3(ANC) (test code = 9421278278) 10.27 10*3/uL 1.88-7.09 H IMM GRAN x10^3 (test code = 2125274408) 0.07 10*3/uL 0.00-0.06 H LYMPH x10^3 (test code = 731-0) 2.52 10*3/uL 1.32-3.29 MONO x10^3 (test code = 742-7) 0.77 10*3/uL 0.33-0.92 EOS x10^3 (test code = 711-2) 0.24 10*3/uL 0.03-0.39 BASO x10^3 (test code = 704-7) 0.06 10*3/uL 0.01-0.07 Lab Interpretation (test code = 37243-1) Abnormal [facility] [id number] 23:43:00* Test Item Value Reference Range Interpretation Comme nts POCT PREG (test code = 1605) Negative On board controls acceptable with C Line (test code = 3574) Yes POCT PREG LOT # (test code = 3575) [id number] POCT PREG TEST DATE ( test code = 3576) 01/27/2022 Lab Interpretation (test cod e = 02436-5) Normal [facility]"
[2024-10-22] MEDS ORDERED: FENTANYL CITR 100 MCG/2 ML ONE ×2 (19:12→23:21)
[2024-10-22] MEDS ORDERED: ONDANSETRON 4 MG/2 ML VIAL ONE (19:12)
[2024-10-22] MEDS ORDERED: FAMOTIDINE 20 MG/2 ML VIAL IV ONE (19:13)
[2024-10-22] MEDS ORDERED: NA CHLORIDE 0.9% 1,000 ML ONE ×2 (19:13→20:34)
[2024-10-22 19:31] LABS: Absolute Basophils 0.2 K/uL (0-0.5); Absolute Eosinophils 0.1 K/uL (0-0.5); Absolute Lymphocytes (CBC) 2.2 K/uL (0.7-4.9); Absolute Monocytes 0.5 K/uL (0.1-1.3); Absolute Neutrophil 15.2 K/uL (1.8-8.0); Eosinophils % 0.3 % (0-4.4); Hematocrit 45.4 % (36.0-45.0); Hemoglobin 15.7 g/dL (12.0-15.0); Lymphocytes % 11.9 % (15.3-44.8); MCH 32.1 pg (27.0-35.0); MCHC 34.6 g/dL (32.0-36.0); MCV 92.7 fL (80-100); MPV 9.2 fL (7.6-11.3); Monocytes % 2.6 % (3.3-12.3); Neutrophils % 84.2 % (41.7-73.7); Nucleated Red Blood Cells % 0.1 % (0-0); Platelets 190 thou/uL (152-406); Red Cell Distribution Width 14.1 % (12.1-15.2)
--- NOTE | 2024-10-22 19:37 | RAD REPORT ---
Procedure: Chest Single View HISTORY: Cough COMPARISON: 2012 FINDINGS: The lungs appear clear of acute infiltrate. Lungs are hyperaerated. No significant pleural effusion noted. The heart is normal size. IMPRESSION: No acute abnormality is displayed.
[2024-10-22 19:38] LABS: ALT/SGPT 16 U/L (13-56); AST/SGOT < 10 U/L (15-37); Albumin 3.5 g/dL (3.4-5.0); Alkaline Phosphatase 81 U/L (45-117); Anion Gap 10.4 mEq/L (5.0-15.0); BUN Blood Urea Nitrogen 10 mg/dL (7-18); Bicarbonate 19 mEq/L (21-32); Bilirubin Total 0.5 mg/dL (0.2-1.0); Globulin 3.5 g/dL (2.3-3.5); Glomerular Filtration Rate 87 ml/min (=/>90); Glucose Level 123 mg/dL (74-106); Lipase 19 U/L (13-75); Potassium 3.4 mEq/L (3.5-5.1); Sodium Level 141 mEq/L (136-145)
[2024-10-22 19:44] LABS: Specific Gravity > 1.030 (1.005-1.030)
--- NOTE | 2024-10-22 19:45 | RAD REPORT ---
EXAMINATION: CT ABDOMEN AND PELVIS WITHOUT CONTRAST CLINICAL INDICATION: Abdominal pain TECHNIQUE: CT abdomen and pelvis was performed, as per department protocol. IV contrast and oral was not administered.Axial, sagittal and coronal reconstructions were obtained. One or more of the following dose reduction techniques were used: Automated exposure control, adjustment of the mA and/o r kV according to the patient size, and/or iterative reconstruction. Unless otherwise specified, incidental findings do not require dedicated imaging follow-up. [id number]. COMPARISON: 2016 FINDINGS: The lack of intravenous and oral contrast limits evaluation of solid organs, vessels and bowel. The liver, spleen, pancreas, adrenals and kidneys appear grossly normal No evidence of diverticulitis Normal appendix. Small amount of free fluid probably physiologic. IMPRESSION: No acute abnormality displayed
[2024-10-22 19:47] LABS: Specific Gravity > 1.030 (1.005-1.030); Sqamous Epithelial 20-50 /HPF (None Seen); Urine Bacteria <20 /HPF (<20); Urine Bilirubin 1+ (Negative); Urine Blood 3+ (OVER) (Negative); Urine Clarity Extremely Turbid (Clear); Urine Color Orange (Yellow); Urine Crystals Unidentified Few /HPF (None Seen); Urine Culture Reflex Order NOT NEEDED; Urine Glucose TRACE (Negative); Urine Ketones 1+ (Negative); Urine Microscopic Reflex YN ORDER UMIC; Urine Mucus 4+ /HPF (None Seen); Urine Nitrite NEGATIVE (Negative); Urine Protein 3+ (Negative); Urine RBC >50 /HPF (None Seen); Urine Urobilinogen 1+ (Normal); Urine WBC >50 /HPF (<5); Urine WBC Clump Moderate /HPF (None Seen); Urine Yeast (Budding) Occasional /HPF (None Seen)
--- NOTE | 2024-10-22 19:56 | ER ---
Nurse's Notes [facility] Name: Sade Mckeon Age: 44 yrs Sex: Female : 1980 Arrival Date: 10/22/2024 Time: 17:40 Bed 16 Private MD: Diagnosis: Abdominal pain, Generalized;UTI/ Urinary tract infection, site not specified;Elevated white blood cell count, unspecified;Hypokalemia;Vomiting;Dehydration;Bradycardia, unspecified Presentation: 10/22 18:32 Chief complaint: N/V and abdominal pain 2 days, not tolerating fluids. Coronavirus hb screen: At this time, the client does not indicate any symptoms associated with coronavirus-19. Ebola Screen: No symptoms or risks identified at this time. Initial Sepsis Screen: Does the patient meet any 2 criteria? No. Patient's initial sepsis screen is negative. Does the patient have a suspected source of infection? No. Patient's initial sepsis screen is negative. Risk Assessment: Do you want to hurt yourself or someone else? Patient reports no desire to harm self or others. Onset of symptoms was October 21, 2024. 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 - Infectious Disease History:: Denies. - Social history:: Smoking status: Patient reports the use of cigarette tobacco products, smokes one pack cigarettes per day. Screenin:[address] [facility] ED Fall Risk Assessment (Adult) History of falling in the last 3 months, kj2 including since admission No falls in past 3 months (0 pts) Confusion or Disorientation No (0 pts) Intoxicated or Sedated No (0 pts) Impaired Gait No (0 pts) Mobility Assist Device Used No (0 pt) Altered Elimination Score/Fall Risk Level 0 - 2 = Low Risk Maintained a safe environment, Hourly rounding (assess needs \T\ fall precautionary measures) done. Abuse screen: Denies threats or abuse. Denies injuries from another. Nutritional screening: No deficits noted. Tuberculosis screening: No symptoms or risk factors identified. Assessment: 19:05 General: Appears uncomfortable, Behavior is calm, cooperative. Pain: Complains of pain kj2 in abdomen Pain currently is 9 out of 10 on a pain scale. Neuro: Level of Consciousness is awake, alert, Oriented to person, place, time, situation. Cardiovascular: Patient's skin is warm and dry. Respiratory: Airway is patent Respiratory effort is unlabored. GI: Abdomen is flat. : No signs and/or symptoms were reported regarding the genitourinary system. 20:30 Reassessment: Patient appears in no apparent distress at this time. Patient and/or kj2 family updated on plan of care and expected duration. Pain level reassessed. Patient is alert, oriented x 3, equal unlabored respirations, skin warm/dry/pink. 20:55 Reassessment: Patient appears in no apparent distress at this time. Patient and/or kj2 family updated on plan of care and expected duration. Pain level reassessed. Patient is alert, oriented x 3, equal unlabored respirations, skin warm/dry/pink. 21:44 Reassessment: Patient appears in no apparent distress at this time. Patient and/or kj2 family updated on plan of care and expected duration. Pain level reassessed. Patient is alert, oriented x 3, equal unlabored respirations, skin warm/dry/pink. 22:59 Reassessment: Patient appears in no apparent distress at this time. Patient and/or kj2 family updated on plan of care and expected duration. Pain level reassessed. Patient is alert, oriented x 3, equal unlabored respirations, skin warm/dry/pink. 10/23 00:05 GI: Bowel sounds present X 4 quads. Abdomen is tender to palpation. kj2 00:40 Reassessment: Patient appears in no apparent distress at this time. Patient and/or kj2 family updated on plan of care and expected duration. Pain level reassessed. Patient is alert, oriented x 3, equal unlabored respirations, skin warm/dry/pink. Vital Signs: 10/22 18:32 BP 132 / 60; Pulse 60; Resp 16; Temp 98.3(O); Pulse Ox 100% on R/A; Weight 68.04 kg; hb Height 5 ft. 8 in. ; Pain 8/10; 19:32 BP 123 / 77; Pulse 56; Resp 18; Pulse Ox 100% ; kj2 19:35 Temp 97.8; kj2 20:30 BP 138 / 71; Pulse 48; Resp 18; Temp 43; Pulse Ox 100% ; kj2 21:44 BP 100 / 52; Pulse 43; Resp 20; Pulse Ox 98% ; kj2 23:00 BP 95 / 52; Pulse 43; Resp 18; Pulse Ox 100% ; kj2 18:32 Body Mass Index 22.81 (68.04 kg, 172.72 cm) hb 18:32 Pain Scale: Adult hb ED Course: 17:41 Patient arrived in ED. im 17:47 Rm Clemente MD is Attending Physician. coleen 18:34 Triage completed. hb 18:36 Arm band placed on. hb 18:57 Lis Slaughter, DASH is Primary Nurse. kc6 19:05 Bed in low position. Side rails up X 1. Adult w/ patient. Provided Education on: CALL kj2 LIGHT, . Report received from DASH Bejarano. 19:05 Inserted saline lock: 20 gauge in right antecubital area, using aseptic technique. kj2 Blood collected. Flushed with 10 mL NS. 19:12 Chest Single View XRAY In Process Unspecified. EDMS 19:26 CT Abd/Pelvis - Without Contrast In Process Unspecified. EDMS 19:30 Urinalysis w/ reflexes Sent. kj2 19:55 Shane Amador MD is Hospitalizing Provider. [facility] 19:56 EKG done, by ED staff. vk 21:47 CBC with Automated Diff Sent. kj2 21:47 CBC with Automated Diff Sent. kj2 21:47 Comprehensive Metabolic Panel Sent. kj2 21:47 Comprehensive Metabolic Panel Sent. kj2 21:47 Urinalysis w/ reflexes Sent. kj2 21:48 No provider procedures requiring assistance completed. kj2 10/23 00:05 Patient admitted, IV remains in place. kj2 Administered Medications: 10/22 19:23 Drug: Ondansetron IVP 4 mg IVP once; over 2 minutes Route: IVP; Site: right antecubital;kj2 20:40 Follow up: Response: No adverse reaction kj2 19:25 Drug: NS 0.9% IV 1000 ml IV at 1 bolus Per protocol; to be given as a bolus over 60 kj2 minutes Route: IV; Rate: 1 bolus; Site: right antecubital; 20:41 Follow up: IV Status: Completed infusion; IV Intake: 1000ml kj2 19:29 Drug: Famotidine IVP 20 mg IVP once; dilute with 10 mL 0.9% NaCl; give over 2 minutes kj2 Route: IVP; Site: right antecubital; 20:39 Follow up: Response: No adverse reaction kj2 19:29 Drug: fentaNYL (PF) IVP 25 mcg IVP once Route: IVP; Site: right antecubital; kj2 20:40 Follow up: Response: No adverse reaction kj2 19:49 CANCELLED (Duplicate Order): [id number] mg 100 ml IVPB at 200 ml/hr once over 30 coleen mins 20:45 Drug: Ciprofloxacin IVPB 400 mg 200 ml IVPB once over 60 mins Volume: 200 ml; Route: kj2 IVPB; Infused Over: 60 mins; Site: right antecubital; 23:59 Follow up: IV Status: Completed infusion; IV Intake: 200ml kj2 20:54 Drug: NS 0.9% IV 1000 ml IV at 1000 ml once; to be given as a bolus over 60 minutes kj2 Route: IV; Rate: 1000 ml; Site: right antecubital; 21:54 Follow up: Response: No adverse reaction kj2 23:58 Follow up: IV Status: Completed infusion; IV Intake: 1000ml kj2 20:55 Drug: Rocephin IV 1 grams IV at ml once; Given slow IV push per pharmacy instructions kj2 Route: IV; Rate: ml; Site: right antecubital; 23:58 Follow up: Response: No adverse reaction kj2 23:24 Drug: fentaNYL (PF) IVP 25 mcg IVP once Route: IVP; Site: right antecubital; kj2 23:51 Follow up: Response: No adverse reaction kj2 Medication: 23:26 VIS not applicable for this client. kj2 Intake: 20:41 IV: 1000ml; Total: 1000ml. kj2 23:58 IV: 1000ml; Total: 2000ml. kj2 23:59 IV: 200ml; Total: 2200ml. kj2 Outcome: 19:56 Decision to Hospitalize by Provider. [facility] 10/23 00:01 Admitted to Med/surg accompanied by tech, room 207, kj2 Condition: stable Instructed on the need for admit, 00:54 Patient left the ED. kj2 Signatures: Dispatcher [employer] Rm Rondon MD MD cha Baxter, Heather, RN RN Lis Mayorga RN RN kc6 Theresa Collins Vivian vk Jordan, Krystal, RN RN kj2
--- NOTE | 2024-10-22 19:56 | EDPHYS ---
Physician Documentation [facility] Name: Sade Mckeon Age: 44 yrs Sex: Female : 1980 Arrival Date: 10/22/2024 Time: 17:40 Bed 16 Private MD: MASON Physician Rm Clemente HPI: 10/22 19:50 This 44 yrs old Female presents to ER via Ambulatory with complaints of coleen Abdominal Pain, Vomiting. 19:50 The patient presents to the emergency department with nausea, vomiting, abdominal pain, coleen of the right upper quadrant, left upper quadrant, right lower quadrant and left lower quadrant. Onset: The symptoms/episode began/occurred 3 day(s) ago. Possible causes: unknown. The symptoms are aggravated by nothing. The symptoms are alleviated by nothing. Severity of symptoms: At their worst the symptoms were moderate in the emergency department the symptoms are unchanged. The patient has experienced similar episodes in the past, a few times. 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 - Infectious Disease History:: Denies. - Social history:: Smoking status: Patient reports the use of cigarette tobacco products, smokes one pack cigarettes per day. ROS: 19:51 Constitutional: Negative for fever, chills, and weight loss, Eyes: Negative for injury, coleen pain, redness, and discharge, ENT: Negative for injury, pain, and discharge, Neck: Negative for injury, pain, and swelling, Cardiovascular: Negative for chest pain, palpitations, and edema, Respiratory: Negative for shortness of breath, cough, wheezing, and pleuritic chest pain, Back: Negative for injury and pain, MS/Extremity: Negative for injury and deformity, Skin: Negative for injury, rash, and discoloration, Neuro: Negative for headache, weakness, numbness, tingling, and seizure, Psych: Negative for depression, anxiety, suicide ideation, homicidal ideation, and hallucinations, Allergy/Immunology: Negative for hives, rash, and allergies, Endocrine: Negative for neck swelling, polydipsia, polyuria, polyphagia, and marked weight changes, 19:51 Abdomen/GI: Positive for abdominal pain, nausea and vomiting, 19:51 : Positive for urinary symptoms, urinary frequency, burning with urination, Exam: 19:51 Constitutional: This is a well developed, well nourished patient who is awake, alert, coleen and in no acute distress. Head/Face: Normocephalic, atraumatic. Eyes: Pupils equal round and reactive to light, extra-ocular motions intact. Lids and lashes normal. Conjunctiva and sclera are non-icteric and not injected. Cornea within normal limits. Periorbital areas with no swelling, redness, or edema. ENT: Nares patent. No nasal discharge, no septal abnormalities noted. Tympanic membranes are normal and external auditory canals are clear. Oropharynx with no redness, swelling, or masses, exudates, or evidence of obstruction, uvula midline. Mucous membranes moist. Neck: Trachea midline, no thyromegaly or masses palpated, and no cervical lymphadenopathy. Supple, full range of motion without nuchal rigidity, or vertebral point tenderness. No Meningismus. Chest/axilla: Normal chest wall appearance and motion. Nontender with no deformity. No lesions are appreciated. Cardiovascular: Regular rate and rhythm with a normal S1 and S2. No gallops, murmurs, or rubs. Normal PMI, no JVD. No pulse deficits. Respiratory: Lungs have equal breath sounds bilaterally, clear to auscultation and percussion. No rales, rhonchi or wheezes noted. No increased work of breathing, no retractions or nasal flaring. Back: No spinal tenderness. No costovertebral tenderness. Full range of motion. Skin: Warm, dry with normal turgor. Normal color with no rashes, no lesions, and no evidence of cellulitis. MS/ Extremity: Pulses equal, no cyanosis. Neurovascular intact. Full, normal range of motion., bilateral aka Neuro: Awake and alert, GCS 15, oriented to person, place, time, and situation. Cranial nerves II-XII grossly intact. Motor strength 5/5 in all extremities. Sensory grossly intact. Cerebellar exam normal. Normal gait. Psych: Awake, alert, with orientation to person, place and time. Behavior, mood, and affect are within normal limits. 19:51 Abdomen/GI: Inspection: abdomen appears normal, Bowel sounds: normal, Palpation: mild abdominal tenderness, in all quadrants, Liver: no appreciated palpable abnormalities, Hernia: not appreciated, 20:06 ECG was reviewed by the Attending Physician. [facility] Vital Signs: 18:32 BP 132 / 60; Pulse 60; Resp 16; Temp 98.3(O); Pulse Ox 100% on R/A; Weight 68.04 kg; hb Height 5 ft. 8 in. ; Pain 8/10; 19:32 BP 123 / 77; Pulse 56; Resp 18; Pulse Ox 100% ; kj2 19:35 Temp 97.8; kj2 20:30 BP 138 / 71; Pulse 48; Resp 18; Temp 43; Pulse Ox 100% ; kj2 21:44 BP 100 / 52; Pulse 43; Resp 20; Pulse Ox 98% ; kj2 23:00 BP 95 / 52; Pulse 43; Resp 18; Pulse Ox 100% ; kj2 18:32 Body Mass Index 22.81 (68.04 kg, 172.72 cm) hb 18:32 Pain Scale: Adult hb MDM: 17:47 Medical Screening Exam initiated coleen 19:52 Differential diagnosis: Nonspecific abd pain, pancreatitis, appendicitis, viral coleen gastroenteritis, gastroenteritis, appendicitis, bowel obstruction, cholecystitis, Cholelithiasis, diverticulitis, Dysmenorrhea, Endometriosis, gastritis. Data reviewed: vital signs, nurses notes, lab test result(s), radiologic studies, CT scan, plain films. Consideration of Admission/Observation Escalation of care including admission/observation considered. I considered the following discharge prescriptions or medication management in the emergency department Medications were administered in the Emergency Department. See MAR. Independent interpretation of the following test(s) in the Emergency Department EKG: See my EKG interpretation above. Test considered but Not performed: Ultrasound NO ABD USG. Historians other than the Patient: Family Member: FAMILY , MOM WELL INFORMED. Care significantly affected by the following chronic conditions: Obesity, ASTHMA, SCHIZO, BIPOLAR. 10/22 17:48 Order name: CBC with Diff; Complete Time: 19:46 [facility] 10/22 17:48 Order name: CMP; Complete Time: 19:46 [facility] 10/22 17:48 Order name: Lipase; Complete Time: 19:46 [facility] 10/22 17:48 Order name: Test, Urine; Complete Time: 19:46 [facility] 10/22 17:48 Order name: Urinalysis w/ reflexes; Complete Time: 19:49 [facility] 10/22 20:12 Order name: Urine Drug Screen; Complete Time: 23:06 [facility] 10/22 20:15 Order name: Urinalysis w/ reflexes [facility] 10/22 20:15 Order name: CBC with Automated Diff [facility] 10/22 20:15 Order name: CBC with Automated Diff [facility] 10/22 20:15 Order name: Comprehensive Metabolic Panel [facility] 10/22 20:15 Order name: Comprehensive Metabolic Panel [facility] 10/22 18:41 Order name: Chest Single View XRAY; Complete Time: 19:46 [facility] 10/22 18:43 Order name: CT Abd/Pelvis - Without Contrast; Complete Time: 19:46 [facility] 10/22 18:41 Order name: EKG; Complete Time: 18:41 [facility] 10/22 17:48 Order name: IV Saline Lock; Complete Time: 19:30 [facility] 10/22 17:48 Order name: Labs collected and sent; Complete Time: 19:30 [facility] 10/22 18:41 Order name: EKG - Nurse/Tech; Complete Time: 19:56 [facility] 10/22 19:48 Order name: Misc. Order: GET UA PLEASE [facility] EC:06 Rate is 41 beats/min. Rhythm is regular. QRS [place] is Normal. VA interval is normal. QRS coleen interval is normal. QT interval is normal. No Q waves. T waves are Normal. No ST changes noted. Clinical impression: Sinus bradycardia and No evidence of ischemia. Interpreted by me. Reviewed by me. Administered Medications: 19:23 Drug: Ondansetron IVP 4 mg IVP once; over 2 minutes Route: IVP; Site: right antecubital;kj2 20:40 Follow up: Response: No adverse reaction kj2 19:25 Drug: NS 0.9% IV 1000 ml IV at 1 bolus Per protocol; to be given as a bolus over 60 kj2 minutes Route: IV; Rate: 1 bolus; Site: right antecubital; 20:41 Follow up: IV Status: Completed infusion; IV Intake: 1000ml kj2 19:29 Drug: Famotidine IVP 20 mg IVP once; dilute with 10 mL 0.9% NaCl; give over 2 minutes kj2 Route: IVP; Site: right antecubital; 20:39 Follow up: Response: No adverse reaction kj2 19:29 Drug: fentaNYL (PF) IVP 25 mcg IVP once Route: IVP; Site: right antecubital; kj2 20:40 Follow up: Response: No adverse reaction kj2 19:49 CANCELLED (Duplicate Order): [id number] mg 100 ml IVPB at 200 ml/hr once over 30 coleen mins 20:45 Drug: Ciprofloxacin IVPB 400 mg 200 ml IVPB once over 60 mins Volume: 200 ml; Route: kj2 IVPB; Infused Over: 60 mins; Site: right antecubital; 23:59 Follow up: IV Status: Completed infusion; IV Intake: 200ml kj2 20:54 Drug: NS 0.9% IV 1000 ml IV at 1000 ml once; to be given as a bolus over 60 minutes kj2 Route: IV; Rate: 1000 ml; Site: right antecubital; 21:54 Follow up: Response: No adverse reaction kj2 23:58 Follow up: IV Status: Completed infusion; IV Intake: 1000ml kj2 20:55 Drug: Rocephin IV 1 grams IV at ml once; Given slow IV push per pharmacy instructions kj2 Route: IV; Rate: ml; Site: right antecubital; 23:58 Follow up: Response: No adverse reaction kj2 23:24 Drug: fentaNYL (PF) IVP 25 mcg IVP once Route: IVP; Site: right antecubital; kj2 23:51 Follow up: Response: No adverse reaction kj2 Disposition Summary: 10/22/24 19:56 Hospitalization Ordered Notes: Hospitalization Status: Inpatient Admission coleen Provider: Shane Amador cha [facility] coleen Condition: Fair coleen Problem: new coleen Symptoms: have improved coleen Bed/Room Type: Standard [facility] Room Assignment: 207(10/22/24 22:53) rv1 Diagnosis - Abdominal pain, Generalized coleen - UTI/ Urinary tract infection, site not specified coleen - Elevated white blood cell count, unspecified coleen - Hypokalemia coleen - Vomiting coleen - Dehydration coleen - Bradycardia, unspecified coleen Discharge Instructions: - Discharge Summary Sheet kj2 Forms: - Medication Reconciliation Form coleen - SBAR form coleen - Leadership Thank You Letter coleen Signatures: Dispatcher [employer] Rm Rondon MD MD cha Baxter Sade, RN RN Abi Isabel PA-C PA-C [id number] Abbey Francisco rv1 Luz Mercer RN RN [id number] Apolonia Haynes RN RN kj2 Corrections: (The following items were deleted from the chart) 19:11 17:48 Abdomen Pelvis W Con+CT.RAD.BRZ ordered. EDMS EDMS 19:49 19:49 metroNIDAZOLE IVPB 500 mg 100 ml IVPB at 200 ml/hr once over 30 mins ordered. [facility] 22:53 19:56 [facility]
--- NOTE | 2024-10-22 20:15 | P.HP ---
Certification for Inpatient Patient admitted to: Inpatient With expected LOS: >2 Midnights Practitioner: I am a practitioner with admitting privileges, knowledge of patient current condition, hospital course, and medical plan of care. Services: Services provided to patient in accordance with Admission requirements found in Title 42 Section 412.3 of the Code of Federal Regulations Patient History Date of Service: 10/23/24 Reason for admission: Abdominal pain, intractable nausea and vomiting History of Present Illness: 44 yrs old Female with past medical history of asthma, bipolar disorder, schizophrenia, GERD who came to ER with abdominal pain and nausea and vomiting. Patient states that episode started 3 days ago and has been progressively getting worse. Has abdominal pain right upper quadrant and left upper quadrant then spreading diffusely on all over the abdomen. Sharp, 8 out of 10 in severity associated with subjective fever and chills. Complains of dysuria as well. Patient also complains of intractable nausea and vomiting and could not tolerate anything p.o. As her symptoms got worse and was brought to ER. Patient was assessed in the ER and was found to have UTI. CT abdomen pelvis did not show any acute changes. Patient is being admitted for further management Allergies iodine [Iodine] Allergy (Intermediate, Verified 12/03/11 12:41) sob Penicillins Allergy (Unknown, Verified 12/03/11 12:41) unknown Sulfa (Sulfonamide Antibiotics) [Sulfa(Sulfonamide Antibiotics)] Allergy (Unknown, Verified 12/03/11 12:41) unknown venlafaxine HCl [From Effexor] Allergy (Verified 12/31/11 13:27) Hives IODINE; IODINE CONTAINING Allergy (Uncoded 04/02/14 05:09) Unknown SULFA (SULFONAMIDES) Allergy (Uncoded 04/02/14 05:09) Unknown TAPE Allergy (Uncoded 12/21/12 13:11) Hives - Past Medical/Surgical History Past Medical History: Reviewed- Non-Contributory -: Asthma, bipolar disorder, schizophrenia Past Surgical History: Reviewed- Non-Contributory -: No significant past surgical history - Family History Family History: Reviewed- Non-Contributory - Social History Smoking Status: Never smoker Review of Systems 10-point ROS is otherwise unremarkable Physical Examination - Vital Signs Temperature: 98.2 F Blood Pressure: 136/68 Pulse: 122 Respirations: 18 Pulse Ox (%): 94 - Physical Exam General: Alert, Oriented x3, Cooperative HEENT: Atraumatic, Normocephalic Neck: Supple Respiratory: Clear to auscultation bilaterally, Normal air movement Cardiovascular: Regular rate/rhythm, Normal S1 S2 Capillary refill: <2 Seconds Gastrointestinal: Soft and benign, Tenderness Musculoskeletal: No clubbing, No swelling Integumentary: Other (Dry) Neurological: Other (Alert awake nonfocal) Lymphatics: No axilla or inguinal lymphadenopathy - Studies Laboratory Data (last 24 hrs) 10/22/24 10/22/24 19:10 19:10 WBC 18.00 H Hgb 15.7 H Hct 45.4 H Plt Count 190 Sodium 141 Potassium 3.4 L BUN 10 Creatinine 0.85 Glucose 123 H Total Bilirubin 0.5 AST < 10 L ALT 16 Alkaline Phosphatase 81 Lipase 19 Assessment and Plan - Plan Intractable nausea and vomiting Leukocytosis Dehydration Hypokalemia UTI Intractable abdominal pain Substance abuse use THC Plan Pain control IV hydration Electrolytes monitor and replace accordingly CT abdomen pelvis no acute changes Chest x-ray negative for any acute changes to Urine culture Started on IV antibiotic Continue home medications and titrate as needed Zofran as needed Advise substance abuse cessation GI/DVT prophylaxis Advanced directive full code Discharge Plan: Home Plan to discharge in: 48 Hours - Advance Directives Does patient have a Living Will: No Does patient have a Durable POA for Healthcare: No - Code Status/Comfort Care Code Status: Full Code Time Spent Managing Pts Care (In Minutes): 48
[2024-10-22] MEDS ORDERED: CEFTRIAXONE 1000 MG/VIAL ONE (20:34)
[2024-10-22] MEDS ORDERED: CIPROFLOXACIN 400mg IV 400 MG/200 ML BAG IV ONE (20:34)
[2024-10-22 21:15] LABS: Barbiturates NEGATIVE (NEGATIVE); Benzodiazepines NEGATIVE (NEGATIVE); Cocaine NEGATIVE (NEGATIVE); METHAMPHETAM NEGATIVE (NEGATIVE); Methadone NEGATIVE (NEGATIVE); Opiates NEGATIVE (NEGATIVE); Phencyclidine NEGATIVE (NEGATIVE); THC Cannibis POSITIVE (NEGATIVE)
[2024-10-23] MEDS: NA CHLORIDE 0.9% 1,000 ML IV SCH (01:13)
[2024-10-23] MEDS ORDERED: Levofloxacin500mg IV 500 MG/100 ML BAG IV SCH ×3 (01:30→12:30)
[2024-10-23 01:36] VITALS: O2SAT 100
[2024-10-23 02:18] VITALS: BMI 23.5
[2024-10-23] MEDS: ONDANSETRON 4 MG/2 ML VIAL IV PRN (04:42)
[2024-10-23] MEDS: ACETAMINOPHEN 325 MG TABLET PO PRN (04:42)
[2024-10-23 06:16] LABS: Absolute Eosinophils 0.2 K/uL (0-0.5); Absolute Monocytes 0.7 K/uL (0.1-1.3); Absolute Neutrophil 4.4 K/uL (1.8-8.0); Basophils % 0.2 % (0-1.3); Eosinophils % 1.9 % (0-4.4); Hematocrit 38.3 % (36.0-45.0); Hemoglobin 13.1 g/dL (12.0-15.0); Lymphocytes % 48.8 % (15.3-44.8); MCH 32.2 pg (27.0-35.0); MCHC 34.1 g/dL (32.0-36.0); MCV 94.3 fL (80-100); MPV 9.1 fL (7.6-11.3); Monocytes % 6.4 % (3.3-12.3); Neutrophils % 42.7 % (41.7-73.7); Nucleated Red Blood Cells % 0.2 % (0-0); Platelets 159 thou/uL (152-406); RBC Red Blood Cell Count 4.06 M/uL (3.86-4.86); Red Cell Distribution Width 13.8 % (12.1-15.2)
[2024-10-23 06:43] LABS: Albumin 2.6 g/dL (3.4-5.0); Anion Gap 7.9 mEq/L (5.0-15.0); Bilirubin Total 0.3 mg/dL (0.2-1.0); Globulin 2.6 g/dL (2.3-3.5); Potassium 2.9 mEq/L (3.5-5.1); Protein, Total 5.2 g/dL (6.4-8.2)
[2024-10-23] MEDS ORDERED: KCL 20 MEQ/100 mL IVPB 20 MEQ/100 ML BAG IV SCH (08:00)
[2024-10-23] MEDS: Levofloxacin 750mg IV 750 MG/150 ML BAG IV SCH (08:05)
[2024-10-23 09:32] LABS: Atypical Lymphocytes 1 %; Blood Morphology Comment NOT SEEN (NOT SEEN); Differential Total Cells Count 100; Eosinophils 5 % (0-3); Lymphocytes 53 % (15-42); Monocytes 6 % (0-10); Platelet Estimate ADEQ; Segmented Neutrophils 35 % (40-80)
[2024-10-23] MEDS: KCL 20 MEQ/100 mL IVPB 100 ML IV SCH (09:56)
[2024-10-23] MEDS: POTASSIUM CL SA 10 MEQ TAB PO ONE ×2 (14:10→19:30)
--- NOTE | 2024-10-23 15:21 | P.PN ---
Subjective Date of Service: 10/23/24 Chief Complaint: Abdominal pain, intractable nausea and vomiting Patient reports persistent nausea and no significant improvement from yesterday. Patient also reports she is currently on her menstrual period. No fever since admission. Patient noted to be bradycardic. Physical Examination - Vital Signs Temperature: 98.5 F Blood Pressure: 126/56 Pulse: 45 Respirations: 16 Pulse Ox (%): 100 - Studies Laboratory Data (last 24 hrs) 10/22/24 10/22/24 19:10 19:10 WBC 18.00 H Hgb 15.7 H Hct 45.4 H Plt Count 190 Sodium 141 Potassium 3.4 L BUN 10 Creatinine 0.85 Glucose 123 H Total Bilirubin 0.5 AST < 10 L ALT 16 Alkaline Phosphatase 81 Lipase 19 Assessment And Plan - Plan Physical examination General: Alert and oriented x3, NAD, HEENT: Conjunctiva not pale, anicteric sclera Neck: Supple, no elevated JVD Heart: Heart sounds 1 and 2 normal, regular rhythm, normal rate, no pedal edema Lungs: Clear to auscultation bilaterally, adequate breath sounds bilaterally, no rhonchi or crackles. Abdomen: Soft, nondistended, nontender, normal bowel sounds. No costovertebral angle tenderness. Extremities: No tenderness, no deformity Skin: Normal skin turgor, no rash, no nodules or ulcers. Neuro: No focal motor deficit. Normal speech. Psychiatry: Normal mood, no agitation. Assessment and plan Diagnosis Intractable nausea and vomiting Leukocytosis Hypokalemia UTI Substance abuse use THC UTI Intractable nausea and vomiting Leukocytosis Leukocytosis resolved. Continue IV hydration Clear liquid diet as tolerated. Obtain blood culture Continue IV Levaquin. Antiemetics as needed. Hypokalemia Replace potassium as needed. Monitor BMP. Marijuana abuse Substance abuse cessation advised DVT prophylaxis: Lovenox Advanced directive: full code
[2024-10-24 06:29] LABS: Absolute Eosinophils 0.3 K/uL (0-0.5); Absolute Lymphocytes (CBC) 4.9 K/uL (0.7-4.9); Absolute Monocytes 0.6 K/uL (0.1-1.3); Absolute Neutrophil 4.3 K/uL (1.8-8.0); Basophils % 0.4 % (0-1.3); Eosinophils % 3.1 % (0-4.4); Hematocrit 37.6 % (36.0-45.0); Hemoglobin 13.1 g/dL (12.0-15.0); Lymphocytes % 48.4 % (15.3-44.8); MCH 32.8 pg (27.0-35.0); MCHC 34.7 g/dL (32.0-36.0); MCV 94.4 fL (80-100); MPV 9.1 fL (7.6-11.3); Monocytes % 5.6 % (3.3-12.3); Neutrophils % 42.5 % (41.7-73.7); Nucleated Red Blood Cells % 0.1 % (0-0); Platelets 173 thou/uL (152-406); RBC Red Blood Cell Count 3.99 M/uL (3.86-4.86); Red Cell Distribution Width 14.1 % (12.1-15.2)
[2024-10-24 06:54] LABS: Anion Gap 7.6 mEq/L (5.0-15.0); Potassium 3.6 mEq/L (3.5-5.1)
[2024-10-24 08:55] VITALS: BP 135/61; TEMP 98.8
[2024-10-24] MEDS: ENOXAPARIN 40 MG/0.4 ML SQ SCH (09:18)
[2024-10-24] MEDS: POTASSIUM CL SA 10 MEQ TAB PO ONE (09:19)
--- NOTE | 2024-10-24 09:46 | P.DS ---
Admission Date: 10/22/24 Discharge Date: 10/24/24 Disposition: ROUTINE DISCHARGE Reason for Admission: Abdominal pain, intractable nausea and vomiting Brief History of Present Illness: 44 yrs old Female with past medical history of asthma, bipolar disorder, carito izophrenia, GERD who came to ER due to abdominal pain and nausea and vomiting of 3 days duration, associated dysuria. Patient reports her symptoms got worse despite taking Clindamycin prescribed by her PCP. Patient was assessed in the ER and was found to have UTI. CT abdomen pelvis did not show any acute changes. Hospital Course: Diagnosis UTI Intractable nausea and vomiting Leukocytosis Hypokalemia Marijuana abuse Patient admitted to the medical floor and treated with IV levaquin. UA did not reflex to urine culture. Blood culture showed no growth. patient's symptoms improved, patient later tolerated diet. Patient did not experience fever. Electrolytes abnormalities including potassium was corrected. Overall patient has clinically improved and responded well to the levaquin. Patient is discharged with oral levaquin to complete 7 days of antibiotics for UTI that failed outpatient therapy. Patient advised to stop using Marijuana. Vital Signs/Physical Exam: Temp Pulse Resp BP Pulse Ox 98.8 F 44 L 12 135/61 96 10/24/24 08:00 10/24/24 08:00 10/24/24 08:00 10/24/24 08:00 10/24/24 08:00 General: Alert, In no apparent distress, Oriented x3 HEENT: Mucous membr. moist/pink, Sclerae nonicteric Neck: Supple, JVD not distended Respiratory: Clear to auscultation bilaterally, Normal air movement Cardiovascular: No edema, Regular rate/rhythm, Normal S1 S2 Gastrointestinal: Normal bowel sounds, Soft and benign, Non-distended, No tenderness Musculoskeletal: No swelling Integumentary: No rashes, No cyanosis Neurological: Normal strength at 5/5 x4 extr Laboratory Data at Discharge: WBC 10.20 thou/uL (4.3-10.9) 10/24/24 05:52 Hgb 13.1 g/dL (12.0-15.0) 10/24/24 05:52 Hct 37.6 % (36.0-45.0) 10/24/24 05:52 Plt Count 173 thou/uL (152-406) 10/24/24 05:52 Sodium 142 mEq/L (136-145) 10/24/24 05:52 Potassium 3.6 mEq/L (3.5-5.1) 10/24/24 05:52 BUN 4 mg/dL (7-18) L 10/24/24 05:52 Creatinine 0.68 mg/dL (0.55-1.02) 10/24/24 05:52 Glucose 99 mg/dL (74-106) 10/24/24 05:52 Total Bilirubin 0.3 mg/dL (0.2-1.0) 10/23/24 05:50 AST 14 U/L (15-37) L 10/23/24 05:50 ALT 16 U/L (13-56) 10/23/24 05:50 Alkaline Phosphatase 60 U/L (45-117) D 10/23/24 05:50 Lipase 19 U/L (13-75) 10/22/24 19:10 Home Medications: L.acidoph,Paracasei, B.lactis [Probiotic] 1 each PO DAILY 10/23/24 Olanzapine [Zyprexa Zydis] 15 mg PO DAILY 10/23/24 Sertraline [Zoloft*] 200 mg PO DAILY 10/23/24 levoFLOXacin [Levaquin] 750 mg PO DAILY #5 tab 10/24/24 New Medications: levoFLOXacin [Levaquin] 750 mg PO DAILY #5 tab Physician Discharge Instructions: 44 yrs old Female with past medical history of asthma, bipolar disorder, schizophrenia, GERD who came to ER due to abdominal pain and nausea and vomiting of 3 days duration, associated dysuria. Patient was assessed in the ER and was found to have UTI. CT abdomen pelvis did not show any acute changes. Patient admitted to the medical floor and treated with IV levaquin. UA did not reflex to urine culture. Blood culture showed no growth. patient's symptoms improved, patient later tolerated diet. Patient did not experience fever. Electrolytes abnormalities including potassium was corrected. Overall patient has clinically improved and responded well to the levaquin. Patient is discharged with oral levaquin to complete 7 days of antibiotics for UTI that failed outpatient therapy. Patient advised to stop using Marijuana. Diet: Regular Activity: Ad anna Followup: NONE,NONE [Primary Care Provider] - 1 Week Time spent managing pt's care (in minutes): 32
--- NOTE | 2024-10-25 13:43 | EKG ---
Test Date: 2024-10-22 Test Time: 19:54:53 Transfer Machine Operator: ZION MEASUREMENT RESULTS: Intervals: Rate: 41 MO: 140 QRSD: 94 QT: 496 QTc: 409 Lyons: P: 76 MO: 140 QRS: 84 T: 81 INTERPRETIVE STATEMENTS: Marked sinus bradycardia Abnormal ECG Compared to ECG 03/26/2017 02:20:06 Sinus arrhythmia no longer present Electronically Signed On 10-25-24 13:37:37 INFORMATICS COORDINATOR by Guillermo Timmons
== END 2024-10-24 10:13 | disposition home or self-care (01) | DRG 690 ==
LOC: ER 17:40 → ERHOLD 20:10 → 2ND 23:24
PROVIDERS: ADMIT Family Medicine; ATTEND Internal Medicine
DX: N39.0 Urinary tract infection, site not specified (principal); E86.0 Dehydration; E87.6 Hypokalemia; E66.9 Obesity, unspecified; J45.909 Unspecified asthma, uncomplicated; F12.10 Cannabis abuse, uncomplicated; F17.210 Nicotine dependence, cigarettes, uncomplicated; Z88.0 Allergy status to penicillin; Z88.2 Allergy status to sulfonamides; Z68.23 Body mass index [BMI] 23.0-23.9, adult; Z91.041 Radiographic dye allergy status; Z79.899 Other long term (current) drug therapy
CPT/HCPCS: 36415; 71045; 74176; 80048; 80053; 80307; 81001; 81025; 83690; 84132; 85025; 87040; 93005; 96361; 96365; 96366; 96375; 99285; J0696; J0744; J1650; J2405; J3010; J3480; J7030

== ENCOUNTER 2025-06-23 14:08 | Emergency (ER) | payer OTHER ==
--- OUTSIDE RECORDS SUMMARY | 2025-06-23 14:20 | XMS REPORT | Continuity of Care Document ---
Author Name Unknown Address [address] [facility]. [address] [place] [address] [facility] Address [address] [facility]. [address] [place] [address] Care Team Providers Care Director Of Assessing Name Role Phone CARLEY REYNA Primary Care Physician Unavaila CARLEY Lynch Attending Clinician Unavailable Rachid Gacria MD Attending Clinician [phone] Tessa Rincon LVN Attending Clinician UnavailRACHID Harvey Attending Clinician Unavailable AKSHAT ROSAS Attending Clinician Unavailable MIYA ALATORRE Attending Clinician Unavailab Miya Parrish MD Attending Clinician [phone] Miya Alatorre DO Attending Clinician [phone] BLADIMIR FLORES Attending Clinician Unavailable Bladiimr Flores PA-C Attending Clinician [phone], [facility] Attending Clinician Unavailable Akshat Rosas MD Attending Clinician [phone] Patricia Davison MD Attending Clinician [phone] Carley Stacy Attending Clinician [phone] Carley Stacy Attending Clinician [phone] Patricia Davison MD Attending Clinician [phone] SERGIO DO Attending Clinician Unavaila ble [facility] Attending Clinician Unavailable Sergio Do MD Attending Clinician + [phone] Doctor Unassigned, [place] Attending Clinician [facility], Ang - Db Attending Clinician Unavailable Marie FENTON Attending Clinician Unavailable Marie Dominguez Attending Clinician Ella BOLDEN David Jones Attending Clinician [phone] Toya Leo Attending Clinician [phone] TOYA THORNTON Attending Clinician Unavailable RACHID GARCIA Admitting Clinician Unavailable MIYA JIN Admitting Clinician Unavailable Payers Payer Name Policy Type Policy Number Effective Date Expirati on Date Source [employer] [id number] 2022 00:00:00 Problems Condition Name Condition Details Condition Category Status Onset Date Resolution Date Last Treatment Date Treating Clinician Comments Source Precordial pain Precordial pain Disease Active 2023-10 00:00: 00 [facility] Tobacco abuse Tobacco abuse Disease Active 2023-10 00:00: 00 [facility] Bradycardi a Bradycardi a Disease Active 2023-10 00:00: 00 [facility] Bipolar I disorder, most recent episode (or current) depressed, severe, without mention of psychotic behavior Bipolar I disorder, most recent episode (or current) depressed, severe, without mention of psychotic behavior Disease Active 07-09 00:00: 00 [facility] Bipolar I disorder, most recent episode (or current) depressed, severe, specified as with psychotic behavior Bipolar I disorder, most recent episode (or current) depressed, severe, specified as with psychotic behavior Disease Active 01-05 00:00: 00 [facility] Allergies, Adverse Reactions, Alerts Allergy Name Allergy Type Status Severity Reaction(s) Onset Date Inactive Date Treating Clinician Comments Source VENLAFAX INE HCL DRUG INGREDI Active Anxiety 01-05 00:00: 00 [facility] IODINE DRUG INGREDI Active Unknown-Cmnt 01-05 00:00: 00 [facility] PENICILL INS Drug Class Active Unknown-Cmnt 01-05 00:00: 00 [facility] SULFA (SULFONA MIDE ANTIBIOT ICS) Drug Class Active Unknown-Cmnt 01-05 00:00: 00 [facility] Penicill ins Propensi ty to adverse reaction s Active Unknown - See comments 01-05 00:00: 00 Had reaction as a child. Doesn't remember what. [facility] Sulfa (Sulfona mide Antibiot ics) Propensi ty to adverse reaction s Active Unknown - See comments 01-05 00:00: 00 As a child [facility] Venlafax ine Hcl Propensi ty to adverse reaction s Active Anxiety 01-05 00:00: 00 [facility] Iodine Propensi ty to adverse reaction s Active Unknown - See comments 01-05 00:00: 00 [facility] Penicill ins Propensi ty to adverse reaction s Active Unknown - See comments 01-05 00:00: 00 Had reaction as a child. Doesn't remember what. [facility] Sulfa (Sulfona mide Antibiot ics) Propensi ty to adverse reaction s Active Unknown - See comments 01-05 00:00: 00 As a child [facility] Social History Social Habit Start Date Stop Date Quantity Comments Source Gender identity [facility] Sexual orientation U [facility] History of tobacco use Cigarette Smoker [facility] Exposure to SARS-CoV-2 (event) Not sure [facility] Alcoholic beverage intake 2024-12-03 00:00:00 2024-12-03 00:00:00 Ex-drinker (finding) [facility] History of Social function 2024-10-10 00:00:00 2024-10-10 00:00:00 [facility] Cigarettes smoked current (pack per day) - Reported 2024-05-08 00:00:00 2024-05-08 00:00:00 [facility] Cigarette pack-years 2024-05-08 00:00:00 2024-05-08 00:00:00 [facility] Tobacco use and exposure 2024-05-08 00:00:00 2024-05-08 00:00:00 Smokeless tobacco non-user [facility] Alcohol intake 2024-01-25 00:00:00 2024-01-25 00:00:00 Ex-drinker (finding) [facility] Sex assigned at 1980 00:00:00 1980 00:00:00 [facility] Smoking Status Start Date Stop Date Source Smokes tobacco daily 2024-05-08 00:00:00 [facility] Tobacco smoking consumption unknown [facility] Medications Ordered Medication Name Filled Medication Name Start Date Stop Date Current Medication? Ordering Clinician Indication Dosage Frequency Signature (SIG) Comments Components Source haloperidol lactate (HALDOL) injection 2.5 mg 11-01 00:45: 00 11-01 00:46 :00 No 2.5mg 2.5 mg, Intravenou s, ONCE, 1 dose, On Hanny 10/31/24 at 1845, STAT, Chemical Restraint: No, Reason for Use: Management of Acute Agitation/ Delirium (NOT CHEMICAL RESTRAINT) , Indication for use of Injectable Psychotrop ics: Other, Please Specify Other Indication : hyperemesi s [facility] ketorolac (TORADOL) injection 15 mg 10-31 22:45: 00 10-31 22:09 :00 No 15mg 15 mg, Slow IV Push, ONCE, 1 dose, On Hanny 10/31/24 at 1645, Routine [facility] NaCl 0.9% (NS) bolus infusion 1,000 mL 10-31 22:15: 00 11-01 01:54 :00 No 1000mL at 999 mL/hr, 1,000 mL, IV Piggyback, ONCE, 1 dose, On Hanny 10/31/24 at 1615, STAT [facility] maalox/diph enhydrAMINE :lidocaine2 %viscous 1:1:1: suspension (COMPOUNDED ) 10-31 22:00: 00 10-31 22:10 :00 No 15mL 15 mL, Oral, ONCE, 1 dose, On Hanny 10/31/24 at 1600, Routine [facility] OLANZapine ZYDIS 5 mg disintegrat ing tablet 10-31 00:00: 00 Yes [id number] 5mg Take 1 tablet by mouth every 8 (eight) hours as needed for Nausea and Vomiting (N/V). [facility] potassium citrate 99 mg Cap 2023-10 12:51: 23 Yes Take by mouth. [facility] levoFLOXaci n 750 mg tablet 2023-10 00:00: 00 Yes [id number] 750mg Take 1 tablet by mouth every 24 (twenty-fo ur) hours. [facility] ondansetron 4 mg disintegrat ing tablet 2023-10 00:00: 00 Yes [id number] 4mg Take 1 tablet by mouth every 8 (eight) hours as needed for Nausea and Vomiting (N/V). [facility] clindamycin 300 mg capsule 2023-10 00:00: 00 Yes [id number] 300mg Take 1 capsule by mouth 4 (four) times daily. [facility] SERTraline (ZOLOFT) 100 mg tablet 05-08 12:44: 50 Yes 200mg Take 2 tablets by mouth in the morning. [facility] clindamycin 300 mg capsule 05-08 00:00: 00 05-16 04:59 :00 No [id number] 300mg Take 1 capsule by mouth 4 (four) times daily for 7 days. [facility] azelastine 137 mcg (0.1 %) nasal spray 11-17 00:00: 00 Yes [id number] 1{spray } Use 1 [facility] in each nostril in the morning and 1 [facility] in the evening. Use in each nostril as directed [facility] montelukast 10 mg tablet 11-17 00:00: 00 Yes [id number] 10mg Take 1 tablet by mouth in the morning. [facility] OLANZapine 10 mg tablet 11-02 00:00: 00 Yes 10mg Take 1 tablet by mouth at bedtime. [facility] AMBIEN ORAL 11-01 09:04: 45 11-01 00:00 :00 No None Entered [facility] ATIVAN ORAL 11-01 09:04: 39 11-01 00:00 :00 No None Entered [facility] LITHIUM ASPARTATE ORAL 11-01 09:04: 33 11-01 00:00 :00 No None Entered [facility] GEODON ORAL 11-01 09:03: 49 11-01 00:00 :00 No None Entered [facility] COUMADIN ORAL 11-01 09:03: 31 11-01 00:00 :00 No None Entered [facility] SERTraline (ZOLOFT) 100 mg tablet 11-01 09:03: 10 Yes 200mg Take 2 tablets by mouth in the morning. [facility] omeprazole 20 mg capsule 11-01 00:00: 00 Yes TAKE 1 CAPSULE BY MOUTH IN THE MORNING [facility] Omeprazole 20 mg tablet 11-01 00:00: 00 11-17 00:00 :00 No [id number] 20mg Take 1 tablet by mouth in the morning. [facility] ibuprofen 600 mg tablet -30 00:00: 00 11-01 00:00 :00 No [id number] 600mg Take 1 tablet by mouth every 6 (six) hours as needed for Pain (scale 4-6). [facility] clindamycin 150 mg capsule 30 00:00: 00 07-09 04:59 :00 No [id number] 300mg Take 2 capsules by mouth 4 (four) times daily for 10 days. [facility] clindamycin (CLEOCIN) injection 600 mg 04-05 17:15: 00 04-05 16:48 :00 No 600mg 600 mg, Intramuscu lar, ONCE, 1 dose, 04/05/21 at 1215, YUNIOR
Re ason for Anti-Infec tive: Documented Infection< br>Documen rochelle Infection Site: Other
O ther site: tooth
D uration of Therapy: 7 days
Re stricted use approved by: ED PROVIDER<b r>Indicati on for Clindamyci n use: tooth infection [facility] acetaminoph en (TYLENOL) tablet 1,000 mg 04-05 17:15: 00 04-05 16:45 :00 No 1000mg 1,000 mg, Oral, ONCE, 1 dose, Mon04/05/21 at 1215, Routine [facility] ibuprofen 800 mg tablet 04-05 00:00: 00 11-01 00:00 :00 No [id number] 800mg Take 1 tablet by mouth every 6 (six) hours as needed for Pain (scale 4-6). [facility] clindamycin 300 mg capsule 04-05 00:00: 00 04-13 04:59 :00 No [id number] 300mg Take 1 capsule by mouth 4 (four) times daily for 7 days. [facility] clindamycin in 5 % dextrose (CLEOCIN) 600 [...] on for Clindamyci n use: dental abscess [facility] proMETHazin e (PHENERGAN) tablet 25 mg 01-05 20:30: 00 01-05 19:40 :00 No 25mg 25 mg, Oral, ONCE, 1 dose, Tu01/05/21 at 1430, YUNIOR [facility] FENTanyl PF (SUBLIMAZE (PF)) injection 50 mcg 01-05 20:30: 00 01-05 19:40 :00 No 50ug 50 mcg, Slow IV Push, ONCE, 1 dose, 01/05/21 at 1430, Routine [facility] dexamethaso ne (DECADRON PHOSPHATE) injection 10 mg 01-05 20:30: 00 01-05 19:40 :00 No 10mg 10 mg, IV Push, ONCE, 1 dose, [place] 01/05/21 at 1430, STAT [facility] chlorhexidi ne 0.12 % mouthwash 01-05 00:00: 00 11-01 00:00 :00 No [id number] 15mL Swish and spit out 15 mL 2 (two) times daily. [facility] clindamycin 150 mg capsule 01-05 00:00: 00 01-16 04:59 :00 No [id number] 450mg Take 3 capsules by mouth 3 (three) times daily for 10 days. [facility] acetaminoph en-codeine 300-30 mg tablet 01-05 00:00: 00 01-13 04:59 :00 No [id number] 1{tbl} Take 1 tablet by mouth every 6 (six) hours as needed for Pain (scale 7-10) for up to 7 days. Indication s: acute pain [facility] ketorolac (TORADOL) injection 60 mg 2019-10 00:30: 00 08-30 23:36 :00 No 60mg 60 mg, Intramuscu lar, ONCE, 1 dose, 08/30/20 at 1830, YUNIOR
Fa culty member approving Restricted medication : Marie FENTON [facility] clindamycin (CLEOCIN HCL) capsule 300 mg 2019-10 00:30: 00 08-30 23:35 :00 No 300mg 300 mg, Oral, ONCE, 1 dose, 08/30/20 at 1830, YUNIOR
Re ason for Anti-Infec tive: Documented Infection< br>Documen rochelle Infection Site: HEENT
D uration of Therapy: 10 days
Re stricted use approved by: ADC PROVIDER [facility] ibuprofen 600 mg tablet 2019-10 00:00: 00 11-01 00:00 :00 No [id number] 600mg Take 1 tablet by mouth every 6 (six) hours as needed for Pain (scale 4-6). [facility] clindamycin 150 mg capsule 2019-10 00:00: 00 09-10 05:59 :00 No [id number] 300mg Take 2 capsules by mouth 4 (four) times daily for 10 days. [facility] GEODON ORAL 2014-10 18:20: 48 Yes None Entered [facility] AMBIEN ORAL 2014-10 18:20: 48 Yes None Entered [facility] COUMADIN ORAL 2014-10 18:20: 48 Yes None Entered [facility] ATIVAN ORAL 2014-10 18:20: 48 Yes None Entered [facility] LITHIUM ASPARTATE ORAL 2014-10 18:20: 48 Yes None Entered [facility] COUMADIN ORAL 2014-10 12:20: 48 Yes None Entered [facility] ZIPRASIDONE HCL 40 MG ORAL CAP 07-11 00:00: 00 Yes 1 Cap Oral BID MEALS [facility] QUETIAPINE 25 MG ORAL TAB 07-11 00:00: 00 11-01 00:00 :00 No 1 Tab Oral TIDPRN [facility] ESCITALOPRA M 10 MG ORAL TAB 07-11 00:00: 00 11-01 00:00 :00 No 3 tabs oral daily [facility] Vital Signs Vital Name Observation Time Observation Value Comments S carley Systolic blood pressure 2024-12-12 21:17:00 147 mm[Hg] [facility] Diastolic blood pressure 2024-12-12 21:17:00 79 mm[Hg] [facility] Heart rate 2024-12-12 21:17:00 52 /min [facility] Body height 2024-12-12 21:17:00 172.7 cm [facility] Body weight 2024-12-12 21:17:00 68.493 kg [facility] BMI 2024-12-12 21:17:00 22.96 kg/m2 [facility] Oxygen saturation in Arterial blood by Pulse oximetry 2024-12-12 21:17:00 97 /min [facility] Systolic blood pressure 2024-12-03 19:38:00 124 mm[Hg] [facility] Diastolic blood pressure 2024-12-03 19:38:00 62 mm[Hg] [facility] Heart rate 2024-12-03 19:38:00 59 /min [facility] Oxygen saturation in Arterial blood by Pulse oximetry 2024-12-03 19:38:00 99 /min [facility] Body temperature 2024-12-03 19:00:00 36.39 Deb [facility] Respiratory rate 2024-12-03 19:00:00 16 /min [facility] Body weight 2024-12-03 19:00:00 68.493 kg [facility] BMI 2024-12-03 19:00:00 22.96 kg/m2 [facility] Systolic blood pressure 2024-11-01 01:51:00 109 mm[Hg] [facility] Diastolic blood pressure 2024-11-01 01:51:00 63 mm[Hg] [facility] Heart rate 2024-11-01 01:51:00 53 /min [facility] Body temperature 2024-11-01 01:51:00 36.33 Deb [facility] Respiratory rate 2024-11-01 01:51:00 18 /min [facility] Oxygen saturation in Arterial blood by Pulse oximetry 2024-11-01 01:51:00 97 /min [facility] Body height 2024-10-31 21:21:[address] [facility] Body weight 2024-10-31 21:21:[address] [facility] BMI 2024-10-31 21:21:00 23.42 kg/m2 [facility] Systolic blood pressure 2024-10-31 20:23:00 101 mm[Hg] [facility] Diastolic blood pressure 2024-10-31 20:23:00 60 mm[Hg] [facility] Heart rate 2024-10-31 20:23:00 72 /min [facility] Body temperature 2024-10-31 20:23:00 36.94 Deb [facility] Body height 2024-10-31 20:23:00 [facility] 2024-10-31 20:23:00 69.854 [facility] 2024-10-31 20:23:00 23.42 kg/m2 [facility] Oxygen saturation in Arterial blood by Pulse oximetry 2024-10-31 20:23:00 97 /min [facility] Systolic blood pressure 2024-10-29 18:49:00 103 mm[Hg] [facility] Diastolic blood pressure 2024-10-29 18:49:00 62 mm[Hg] [facility] Heart rate 2024-10-29 18:49:00 56 /min [facility] Respiratory rate 2024-10-29 18:49:00 12 /min [facility] Body height 2024-10-29 18:49:[address] [facility] Body weight 2024-10-29 18:49:[address] [facility] BMI 2024-10-29 18:49:00 23.42 kg/m2 [facility] Oxygen saturation in Arterial blood by Pulse oximetry 2024-10-29 18:49:00 97 /min [facility] Systolic blood pressure 2024-10-28 18:52:00 148 mm[Hg] [facility] Diastolic blood pressure 2024-10-28 18:52:00 72 mm[Hg] [facility] Heart rate 2024-10-28 18:51:00 49 /min [facility] Body temperature 2024-10-28 18:51:00 36.78 Deb [facility] Body height 2024-10-28 18:51:00 172.7 cm [facility] Body weight 2024-10-28 18:51:[address] [facility] BMI 2024-10-28 18:51:00 23.66 kg/m2 [facility] Oxygen saturation in Arterial blood by Pulse oximetry 2024-10-28 18:51:00 100 /min [facility] Systolic blood pressure 2024-10-10 21:20:00 108 mm[Hg] [facility] Diastolic blood pressure 2024-10-10 21:20:00 72 mm[Hg] [facility] Heart rate 2024-10-10 21:20:00 71 /min [facility] Body temperature 2024-10-10 21:20:00 36.89 Deb [facility] Body height 2024-10-10 21:20:[address] [facility] Body weight 2024-10-10 21:20:[address] [facility] BMI 2024-10-10 21:20:00 23.72 kg/m2 [facility] Oxygen saturation in Arterial blood by Pulse oximetry 2024-10-10 21:20:00 97 /min [facility] Systolic blood pressure 2024-05-08 17:45:00 114 mm[Hg] [facility] Diastolic blood pressure 2024-05-08 17:45:00 68 mm[Hg] [facility] Heart rate 2024-05-08 17:45:00 61 /min [facility] Body temperature 2024-05-08 17:45:00 36.83 Deb [facility] Respiratory rate 2024-05-08 17:45:00 18 /min [facility] Body height 2024-05-08 17:45:[address] [facility] Body weight 2024-05-08 17:45:[address] [facility] BMI 2024-05-08 17:45:00 26.30 [facility] in Arterial blood by Pulse oximetry 2024-05-08 17:45:00 96 /min [facility] Systolic blood pressure 2024-01-25 14:41:00 126 mm[Hg] [facility] Diastolic blood pressure 2024-01-25 14:41:00 57 mm[Hg] [facility] Heart rate 2024-01-25 14:41:00 73 /min [facility] Body temperature 2024-01-25 14:41:00 36 Deb [facility] Respiratory rate 2024-01-25 14:41:00 17 /min [facility] Body height 2024-01-25 14:41:[address] [facility] Body weight 2024-01-25 14:41:[address] [facility] BMI 2024-01-25 14:41:00 27.06 kg/m2 [facility] Oxygen saturation in Arterial blood by Pulse oximetry 2024-01-25 14:41:00 97 /min [facility] Systolic blood pressure 2023-11-17 19:53:00 124 mm[Hg] [facility] Diastolic blood pressure 2023-11-17 19:53:00 76 mm[Hg] [facility] Heart rate 2023-11-17 19:53:00 69 /min [facility] Body temperature 2023-11-17 19:53:00 36.5 Deb [facility] Body height 2023-11-17 19:53:00 172.7 cm [facility] Body weight 2023-11-17 19:53:00 79.334 kg [facility] BMI 2023-11-17 19:53:00 26.59 kg/m2 [facility] Oxygen saturation in Arterial blood by Pulse oximetry 2023-11-17 19:53:00 98 /min [facility] Systolic blood pressure 2023-11-01 14:53:00 124 mm[Hg] [facility] Diastolic blood pressure 2023-11-01 14:53:00 76 mm[Hg] [facility] Heart rate 2023-11-01 14:53:00 85 /min [facility] Body temperature 2023-11-01 14:53:00 36.67 Deb [facility] Respiratory rate 2023-11-01 14:53:00 18 /min [facility] Body height 2023-11-01 14:53:[address] [facility] Body weight 2023-11-01 14:53:00 80.695 kg [facility] BMI 2023-11-01 14:53:00 27.05 kg/m2 [facility] Oxygen saturation in Arterial blood by Pulse oximetry 2023-11-01 14:53:00 97 /min [facility] Systolic blood pressure 2023-06-28 13:22:00 141 mm[Hg] [facility] Diastolic blood pressure 2023-06-28 13:22:00 70 mm[Hg] [facility] Heart rate 2023-06-28 13:22:00 78 /min [facility] Body temperature 2023-06-28 13:22:00 36.72 Deb [facility] Respiratory rate 2023-06-28 13:22:00 18 /min [facility] Body height 2023-06-28 13:22:00 172.7 cm [facility] Body weight 2023-06-28 13:22:00 68.04 kg [facility] BMI 2023-06-28 13:22:00 22.81 kg/m2 [facility] Oxygen saturation in Arterial blood by Pulse oximetry 2023-06-28 13:22:00 99 /min [facility] Systolic blood pressure 2021-04-05 14:51:00 116 mm[Hg] [facility] Diastolic blood pressure 2021-04-05 14:51:00 70 mm[Hg] [facility] Heart rate 2021-04-05 14:51:00 61 /min [facility] Body temperature 2021-04-05 14:51:00 37.11 Deb [facility] Respiratory rate 2021-04-05 14:51:00 16 /min [facility] Body weight 2021-04-05 14:51:00 70.353 kg [facility] BMI 2021-04-05 14:51:00 23.58 kg/m2 [facility] Oxygen saturation in Arterial blood by Pulse oximetry 2021-04-05 14:51:00 97 /min [facility] Systolic blood pressure 2021-01-05 21:14:20 102 mm[Hg] [facility] Diastolic blood pressure 2021-01-05 21:14:20 67 mm[Hg] [facility] Heart rate 2021-01-05 21:14:20 64 /min [facility] Respiratory rate 2021-01-05 21:14:20 12 /min [facility] Oxygen saturation in Arterial blood by Pulse oximetry 2021-01-05 21:14:20 98 /min [facility] Body temperature 2021-01-05 18:20:00 37.22 Deb [facility] Body weight 2021-01-05 18:20:00 77.111 kg [facility] BMI 2021-01-05 18:20:00 25.85 kg/m2 [facility] Systolic blood pressure 2020-08-30 23:11:00 123 mm[Hg] [facility] Diastolic blood pressure 2020-08-30 23:11:00 79 mm[Hg] [facility] Heart rate 2020-08-30 23:11:00 73 /min [facility] Body temperature 2020-08-30 23:11:00 37.44 Deb [facility] Respiratory rate 2020-08-30 23:11:00 16 /min [facility] Body height 2020-08-30 23:11:00 172.7 cm [facility] Body weight 2020-08-30 23:11:00 77.111 kg [facility] BMI 2020-08-30 23:11:00 25.85 kg/m2 [facility] Oxygen saturation in Arterial blood by Pulse oximetry 2020-08-30 23:11:00 96 /min [facility] Procedures Procedure Date / Time Performed Performing Clinician Source TRANSTHORACIC ECHO (TTE) COMPLETE 2024-11-14 21:38:08 Rachid Garcia [facility] CT ABDOMEN PELVIS WO CONTRAST 2024-10-31 23:25:50 Miya Jin [facility] LIPASE 2024-10-31 22:07:00 Miya Jin [facility] COMP. METABOLIC PANEL ([id number]) 2024-10-31 22:07:00 Miya Jin [facility] [facility] (IMMUNOASSAY) - COMPREHENSIVE DRUG SCREEN 2024-10-31 22:07:00 Miya Jin [facility] CBC WITH DIFF 2024-10-31 22:07:00 Miya Jin [facility] URINALYSIS 2024-10-31 22:07:00 Miya Jin [facility] POCT TEST 2024-10-31 22:07:00 Miya Jin [facility] LACTIC ACID WHOLE BLOOD 2024-10-31 22:07:00 Love Jin [facility] POCT URINALYSIS 2024-10-28 18:53:[address] [facility] 2023-11-01 15:25:00 Carley Reyna [facility] COMP. METABOLIC PANEL (40560) 2023-11-01 15:25:00 Carley Reyna [facility] CBC WITH DIFF 2023-11-01 15:25:00 Carley Reyna [facility] POCT TEST 2023-11-01 15:16:00 Carley Reyna [facility] CONSENT/REFUSAL FOR DIAGNOSIS AND TREATMENT 2023-11-01 14:18:58 Doctor Unassigned, [place] [facility] CONSENT/REFUSAL FOR DIAGNOSIS AND TREATMENT 2023-06-28 13:13:25 Doctor Unassigned, [place] [facility] CONSENT/REFUSAL FOR DIAGNOSIS AND TREATMENT 2021-04-05 14:43:34 Doctor Unassigned, [place] [facility] CT MAXILLOFACIAL/MANDIBLE WO CONTRAST 2021-01-05 21:11:14 Toya Thornton [facility] TEST, SERUM 2021-01-05 19:29:00 Darrin Thornton [facility] COMP. METABOLIC PANEL (11213) 2021-01-05 19:29:00 Toya Thornton [facility] CBC WITH DIFF 2021-01-05 19:29:00 Toya Thornton [facility] NOTICE OF PRIVACY PRACTICES 2021-01-05 18:18:19 Doctor Unassigned, [place] [facility] CONSENT/REFUSAL FOR DIAGNOSIS AND TREATMENT 2021-01-05 18:17:52 Doctor Unassigned, [place] [facility] POCT TEST 2020-08-30 23:35:00 Marie Fenton [facility] Encounters Start Date/Time End Date/Time Encounter Type Admission Type Attending Clinicians Care Facility Care Department Encounter ID Source 2024-12-23 00:00:00 2024-12-23 15:52:34 Telephone Jose [facility] BUILDING 1.2.840.114 350.1.13.10 4.2.7.2.686 [id number] [id number] [facility] 2024-12-18 00:00:00 2024-12-18 16:45:50 Telephone Jose [facility] BUILDING 1.2.840.114 350.1.13.10 4.2.7.2.686 [id number] [id number] [facility] 2023-11-17 00:00:00 2024-12-14 02:35:48 Orders Only Mckenzie, [facility] 1.2.840.114 350.1.13.10 4.2.7.2.686 [id number] 044 [id number] [facility] 2024-12-12 15:00:00 2024-12-12 23:59:00 Outpatient R JOSE [facility] [id number] [facility] 2024-12-12 14:45:52 2024-12-12 23:59:00 [facility] 1.2.840.114 350.1.13.10 4.2.7.2.686 [id number] [facility] 2024-12-12 08:30:00 2024-12-12 14:44:00 Hospital Encounter Rachid Garcia [facility] BU[facility] 1.2.840.114 350.1.13.10 4.2.7.2.686 [id number] [facility] 2024-12-11 00:00:00 2024-12-11 16:31:22 Telephone Rachid Garcia [facility] [place] [facility] BU[facility] 1.2.840.114 350.1.13.10 4.2.7.2.686 [id number] [facility] 2024-12-06 00:00:00 2024-12-06 13:01:59 Telephone Rachid Garcia [facility] [facility] 1.2.840.114 350.1.13.10 4.2.7.2.686 [id number] [id number] [facility] 2024-12-03 13:00:00 2024-12-03 13:54:25 Outpatient R RACHID GARCIA [facility] [id number] [facility] 2024-12-03 13:00:00 2024-12-03 13:54:25 Office Visit Rachid Garcia [facility] 1.2.840.114 350.1.13.10 4.2.7.2.686 [id number] [id number] [facility] 2024-11-14 14:42:41 2024-11-14 23:59:00 Outpatient R RACHID GARCIA [facility] [id number] [facility] 2024-11-14 14:42:41 2024-11-14 23:59:00 Hospital Encounter Rachid Garcia [facility] BU[facility] 1.2.840.114 350.1.13.10 4.2.7.2.686 [id number] [facility] 2024-10-31 15:23:00 2024-10-31 19:54:00 Emergency X FAUSTINO MIYA [facility] ERT [id number] [facility] 2024-10-31 15:23:00 2024-10-31 19:54:00 Emergency Ciara Miya Maddy Miya Alatorre [facility] 1.2.840.114 350.1.13.10 4.2.7.2.686 [id number] [id number] [facility] 2024-10-31 14:30:00 2024-10-31 14:48:05 Outpatient BLADIMIR HAQUE [facility] [id number] [facility] 2024-10-31 14:30:00 2024-10-31 14:48:05 Office Visit Bladimir Flores [facility] BUILDING 1..840.114 350.1.13.10 4.2.7.2.686 [id number] [facility] 2024-10-29 13:45:00 2024-10-29 14:00:00 Field Recruiter Visit 2, [facility] Lab GarciaTamica bowerRachid 2, [facility] 1.2.840.114 350.1.13.10 4.2.7.2.686 [id number] [facility] 2024-10-29 13:00:00 2024-10-29 13:33:58 Outpatient R GARCIA, RACHID [facility] [id number] [facility] 2024-10-29 13:00:00 2024-10-29 13:33:58 Office Visit [facility]id [facility] 1.2.840.114 350.1.13.10 4.2.7.2.686 [id number] 059 [id number] [facility] 2024-10-28 12:45:00 2024-10-28 13:04:16 Outpatient R AKSHAT ROSAS [facility] [id number] [facility] 2024-10-28 12:45:00 2024-10-28 13:04:16 Office Visit Akshat Rosas [facility] BUILDING 1.2.840.114 350.1.13.10 4.2.7.2.686 [id number] [id number] [facility] 2024-10-14 00:00:00 2024-10-16 12:22:52 Telephone Patricia Davison [facility] 1..840.114 350.1.13.10 4.2.7.2.686 [id number] [facility] 2024-10-10 15:30:00 2024-10-10 16:02:38 Outpatient R GSIELLE REYNALIE [facility] [id number] [facility] 2024-10-10 15:30:00 2024-10-10 16:02:38 [facility] BUILDING 1.2.840.114 350.1.13.10 4.2.7.2.686 [id number] [facility] 2024-05-08 13:00:00 2024-05-08 13:13:31 Outpatient R GISELLE REYNALIE [facility] [id number] [facility] 2024-05-08 13:00:00 2024-05-08 13:13:31 Office [facility] BUILDING 1.2.840.114 350.1.13.10 4.2.7.2.686 [id number] [facility] 2024-04-03 00:00:00 2024-04-04 10:18:14 [facility]..114 350.1.13.10 4.2.7.2.686 [id number] [facility] 2024-02-07 00:00:00 2024-02-07 00:00:00 Outpatient SERGIO OCONNELL [facility] [id number] [facility] 2024-01-25 10:30:00 2024-01-25 10:45:00 Field Recruiter Visit [facility] Sergio Do [facility] 1..114 350.1.13.10 4.2.7.2.686 [id number] [facility] 2024-01-25 10:00:00 2024-01-25 10:30:00 Office Visit Ptaricia [facility] 1.114 350.1.13.10 4.2.7.2.686 [id number] [facility] 2024-01-25 10:00:00 2024-01-25 10:00:00 Outpatient SERGIO OCONNELL [facility] [id number] [facility] 2023-11-23 00:00:00 2023-11-23 00:00:00 Patient Secure Msg Doctor Unassigned, [place] [facility] 1.114 350.1.13.10 4.2.7.2.686 [id number] [id number] [facility] 2023-11-21 00:00:00 2023-11-21 00:00:00 Patient Secure Msg Doctor Unassigned, [place] [facility] 1.84.114 350.1.13.10 4.2.7.2.686 [id number] 044 [id number] [facility] 2023-11-20 00:00:00 2023-11-20 00:00:00 Patient Secure Msg Doctor Unassigned, [place] [facility] OFFICE BUILDING 1.2840.114 350.1.13.10 4.2.7.2.686 [id number] [id number] [facility] 2023-11-17 14:30:00 2023-11-17 14:45:00 Field Recruiter Visit Lab, Jose Carlos Reyna [facility] OFF[facility] BUILDING 1.284.114 350.1.13.10 4.2.7.2.686 [id number] [facility] 2023-11-17 14:00:00 2023-11-17 14:19:47 Outpatient R CARLEY REYNA [facility] [id number] [facility] 2023-11-17 14:00:00 2023-11-17 14:19:47 Office Visit Carley Reyna Jona [facility] 1.840.114 350.1.13.10 4.2.7.2.686 [id number] [facility] 2023-11-08 00:00:00 2023-11-08 00:00:00 Patient Secure Msg Doctor Unassigned, [place] [facility] 1.840.114 350.1.13.10 4.2.7.2.686 [id number] [facility] 2023-11-05 00:00:00 2023-11-05 00:00:00 Telephone Carley Reyna Jona [facility] 1.840.114 350.1.13.10 4.2.7.2.686 [id number] 044 [id number] [facility] 2023-11-01 09:30:00 2023-11-01 10:18:53 Field Recruiter Visit Lab, Jose Carlos Reyna Carley [facility] BUILDING 1.2.840.114 350.1.13.10 4.2.7.2.686 [id number] [facility] 2023-11-01 08:00:00 2023-11-01 09:17:09 Outpatient R CARLEY REYNA [facility] [id number] [facility] 2023-11-01 08:00:00 2023-11-01 09:17:09 Office Visit Mendez, Carley Tenorio [facility] BUILDING 1.2.840.114 350.1.13.10 4.2.7.2.686 [id number] 044 [id number] [facility] 2023-11-01 00:00:00 2023-11-01 00:00:00 Letter (Out) Doctor Unassigned, [place] [facility] 1.2840.114 350.1.13.10 4.2.7.2.686 [id number] [id number] [facility] 2023-11-01 00:00:00 2023-11-01 00:00:00 Orders Only Doctor Unassigned, [place] [facility] 1.2840.114 350.1.13.10 4.2.7.2.686 [id number] [facility] 2023-11-01 00:00:00 2023-11-01 00:00:00 Letter (Out) Doctor Unassigned, [place] [facility] 1.2840.114 350.1.13.10 4.2.7.2.686 [id number] [facility] 2023-06-28 08:23:00 2023-06-28 09:29:00 Emergency X Marie FENTON [facility] ERT [id number] [facility] 2023-06-28 08:23:00 2023-06-28 09:29:00 Emergency Marie Fenton [facility] 1.2.840.114 350.1.13.10 4.2.7.2.686 [id number] [facility] 2021-04-05 09:53:00 2021-04-05 12:16:00 Emergency David Jaramillo [facility] 1.2.840.114 350.1.13.10 4.2.7.2.686 [id number] [facility] 2021-04-05 09:43:00 2021-04-05 09:43:[address] [facility] ERT [id number] [facility] 2021-01-05 12:21:00 2021-01-05 16:52:00 Emergency Toya Thornton [facility] 1.2.840.114 350.1.13.10 4.2.7.2.686 [id number] [facility] 2021-01-05 12:21:00 2021-01-05 12:21:00 Emergency X TOYA THORNTON [facility] ERT [id number] [facility] 2020-08-30 17:18:00 2020-08-30 17:52:00 Emergency Marie Fenton Uzma [facility] 1.2.840.114 350.1.13.10 4.2.7.2.686 [id number] [facility] 2020-08-30 17:18:00 2020-08-30 17:18:00 Emergency X Marie FENTON [facility] ERT [id number] [facility] Results Test Description Test Time Test Comments Results Result Co mments Source [facility] wo [id number] 00:19:06ORDERING PHYSICIAN:MIYA CIFUENTES CLINICAL INFORMATION: ? UTI, recurrent/complicated (Female) Abdominal pain, acute, nonlocalized COMPARISON: None Technique: ? CT of the abdomen and pelvis was performed without IV or p.o.contrast. Multiplanar reformats were also obtained. This study wasperformed according to ALARA principle for radiation dose reduction. Findings: No urinary calcifications or signs of urinary obstruction are seen.Gallbladder surgically absent. Unenhanced liver, spleen, adrenal glands,pancreas or evidence of gross abnormality. There is no bowel obstruction.Appendix is normal. Uterus and adnexa show no evidence of grossabnormalities. No free intraperitoneal air or fluid are present. Nopathologically enlarged lymph nodes are seen. Lung bases show evidence ofsome very mild hazy opacities bilaterally. No suspicious focal osseouslesions are seen.[facility]. Metabolic Panel ([id number])2024-10-31 22:34:10* Test Item Value Reference Range Interpretation Comme nts NA (test code = 6135815023) 142 mmol/L 135-145 K (test code = 8908737556) 3.6 mmol/L 3.5-5.0 CL (test code = 9827532677) 108 mmol/L 98-108 CO2 TOTAL (test code = 3203546203) 26 mmol/L 23-31 AGAP (test code = 3741367411) 8 2-16 BUN (test code = 0198203602) 11 mg/dL 7-23 GLUCOSE (test code = 2931520123) 113 mg/dL 70-110 H CREATININE (test code = 2160-0) 0.78 mg/dL 0.50-1.04 TOTAL BILI (test code = 0908037478) 0.2 mg/dL 0.1-1.1 CALCIUM (test code = 1515706734) 9.9 mg/dL 8.6-10.6 T PROTEIN (test code = 6092774444) 6.6 g/dL 6.3-8.2 ALBUMIN (test code = 9002474928) 4.1 g/dL 3.5-5.0 ALK PHOS (test code = 8879126556) 68 U/L 34-122 ALTv (test code = 1742-6) 14 U/L 5-35 AST(SGOT) (test code = 1185326058) 14 U/L 13-40 eGFR (test code = 55176-0) 96.8 mL/min/1.73m2 CKD-EPI eGFR (2020). Assuming creatinine has been stable day-to-day for at least three months, the eGFR indicates Category G1 (>= 90 mL/min/1.73 m2) Lab Interpretation (test code = 34495-7) Abnormal [facility] 22:33:49* Test Item Value Reference Range Interpretation Comme nts LIPASE (test code = 6614717122) 58 U/L 0-220 Lab Interpretation (test cod e = 50966-4) Normal [facility] with [id number] 22:29:14* Test Item Value Reference Range Interpretation Comme nts WBC (test code = 6690-2) 19.62 4.30-11.10 H RBC (test code = 789-8) 4.76 3.93-5.25 HGB (test code = 718-7) 15.6 g/dL 11.6-15.0 H HCT (test code = 4544-3) 46.2 % 35.7-45.2 H MCV (test code = 787-2) 97.1 fL 80.6-95.5 H MCH (test code = 785-6) 32.8 pg 25.9-32.8 MCHC (test code = 786-4) 33.8 g/dL 31.6-35.1 RDW-SD (test code = 31831-6) 49.3 fL 39.0-49.9 RDW-CV (test code = 788-0) 13.6 % 12.0-15.5 PLT (test code = 777-3) 187 166-358 MPV (test code = 03888-9) 10.9 fL 9.5-12.9 NRBC/100 WBC (test code = 7591706757) 0.0 0.0-10.0 NRBC x10^3 (test code = 9032176981) See_Comment [Automated message] The system which generated this result transmitted reference range: 10*3/?L. The reference range was not used to interpret this result as normal/abnormal. GRAN MAT (NEUT) % (test code = 770-8) 71.5 % IMM GRAN % (test code = 9039225456) 0.50 % LYMPH % (test code = 736-9) 21.4 % MONO % (test code = 5905-5) 4.1 % EOS % (test code = 713-8) 2.2 % BASO % (test code = 706-2) 0.3 % GRAN MAT x10^3(ANC) (test code = 4400529632) 14.05 10*3/uL 1.88-7.09 H IMM GRAN x10^3 (test code = 1526631191) 0.09 10*3/uL 0.00-0.06 H LYMPH x10^3 (test code = 731-0) 4.19 10*3/uL 1.32-3.29 H MONO x10^3 (test code = 742-7) 0.80 10*3/uL 0.33-0.92 EOS x10^3 (test code = 711-2) 0.43 10*3/uL 0.03-0.39 H BASO x10^3 (test code = 704-7) 0.06 10*3/uL 0.01-0.07 Lab Interpretation (test code = 68852-9) Abnormal [facility]ail[facility] Whole [id number] 22:21:31* Test Item Value Reference Range Interpretation Comme nts LACTIC ACID (test code = 4637206518) 1.43 mmol/L 0.50-2.20 Lab Interpretation (test cod e = 60459-6) Normal [facility] [id number] 22:07:00* Test Item Value Reference Range Interpretation Comme nts POCT PREG (test code = 1605) Negative On board controls acceptable with C Line (test code = 3574) Yes POCT PREG LOT # (test code = 3575) [id number] POCT PREG TEST DATE ( test code = 3576) 10-14-2025 Lab Interpretation (test cod e = 05607-6) Normal [facility] Urinalysis W Specific [id number] 18:53:00* Test Item Value Reference Range Interpretation Comme nts POCT U SP GRAV (test code = 3255) 1.020 mg/dl 1.005-1.025 POCT PH U (test code = 3254) 5 mg/dl 5-8 POCT U LEUK EST (test code = 3263) trace Negative - Negative POCT U NIT (test code = 3262) pos Negative - Negati ve POCT U PROT (test code = 3259) neg Negative - Negative POCT U GLU (test code = 3256) norm Negative - Negati ve POCT U KETONE (test code = 3258) + Negative - Negative POCT U UROBILI (test code = 3260) 1 mg/dl 0.2-1 POCT U BILI (test code = 3261) + Negative - Negative POCT U BLD (test code = 3257) 50 Negative - Negati ve POCT U COLOR (test code = 3266) dark yellow POCT U APPEAR (test code = 3267) hazy Lab Interpretation (test cod e = 76183-2) Abnormal [facility] [id number] 15:21:00* Test Item Value Reference Range Interpretation Comme nts POCT PREG (test code = 1605) Negative On board controls acceptable with C Line (test code = 3574) Yes POCT PREG LOT # (test code = 3575) POCT PREG TEST DATE ( test code = 3576) Lab Interpretation (test cod e = 84310-6) Normal [facility] [id number] 15:21:00* Test Item Value Reference Range Interpretation Comme nts POCT PREG (test code = 1605) Negative On board controls acceptable with C Line (test code = 3574) Yes POCT PREG LOT # (test code = 3575) POCT PREG TEST DATE ( test code = 3576) Lab Interpretation (test cod e = 64270-6) Normal [facility] MAXILLOFACIAL/MANDIBLE WO CONTRAST 2021-01-05 21:20:31Impression: 1. ?No [...] tissue windows do not demonstrate anyfocal lesions. [facility], Radiant Results Inft User - 01/05/2021 3:21 [...] lesions.IMPRESSIONImpression:1. No acute abnormality involving the maxillofacial region.[facility], [id number] 20:50:51* Test Item Value Reference Range Interpretation Comme nts PREG SERUM (test code = 7095828432) Negative DASHAWN (test code = DASHAWN) Less than 10 IU/L. ?If low titer or ectopic is suspected, resubmit specimen in 48-72 hours. [facility]. METABOLIC PANEL ([id number])2021-01-05 19:58:23* Test Item Value Reference Range Interpretation Comme nts NA (test code = 9368681109) 139 mmol/L 135-145 K (test code = 8617136669) 3.8 mmol/L 3.5-5.0 CL (test code = 1475200209) 106 mmol/L 98-108 CO2 TOTAL (test code = 9812860429) 26 mmol/L 23-31 AGAP (test code = 4285704468) 2-16 BUN (test code = 3837895253) 8 mg/dL 7-23 GLUCOSE (test code = 3499363607) 106 mg/dL 70-110 CREATININE (test code = 1308672050) 0.66 mg/dL 0.50-1.04 TOTAL BILI (test code = 2457579070) 0.6 mg/dL 0.1-1.1 CALCIUM (test code = 6208191508) 9.3 mg/dL 8.6-10.6 T PROTEIN (test code = 3790625575) 7.0 g/dL 6.3-8.2 ALBUMIN (test code = 9998789668) 4.3 g/dL 3.5-5.0 ALK PHOS (test code = 4070383144) 94 U/L 34-122 ALTv (test code = 1742-6) 11 U/L 5-35 AST(SGOT) (test code = 1660314032) 17 U/L 13-40 eGFR Calculation (Non-) (test code = 1100249701) mL/min/1.73m2 eGFR Calculation () (test code = 8431225195) mL/min/1.73m2 DASHAWN (test code = DASHAWN) Association [...] or urine or abnormalities in imaging tests). [facility] WITH [id number] 19:43:23* Test Item Value Reference Range Interpretation [...] 34.1 g/dL 31.6-35.1 RDW-SD (test code = 25126-2) 43.1 fL 39.0-49.9 RDW-CV (test code = 788-0) 12.7 % 12.0-15.5 PLT (test code = 777-3) See_Comment L [Automated message] The system which generated this result transmitted reference range: 166 - 358 10*3/?L. The reference range was not used to interpret this result as normal/abnormal. MPV (test code = 26696-4) 10.3 fL 9.5-12.9 NRBC/100 WBC (test code = 6138407456) See_Comment [Automated message] The system which generated this result transmitted reference range: 0.0 - 10.0 /100 WBCs. The reference range was not used to interpret this result as normal/abnormal. NRBC x10^3 (test code = 3075640315) <0.01 See_Comment [Automated message] The system which generated this result transmitted reference range: 10*3/?L. The reference range was not used to interpret this result as normal/abnormal. GRAN MAT (NEUT) % (test code = 770-8) 73.8 % IMM GRAN % (test code = 6540166908) 0.50 % LYMPH % (test code = 736-9) 18.1 % MONO % (test code = 5905-5) 5.5 % EOS % (test code = 713-8) 1.7 % BASO % (test code = 706-2) 0.4 % GRAN MAT x10^3(ANC) (test code = 4660738614) 10.27 10*3/uL 1.88-7.09 H IMM GRAN x10^3 (test code = 1059938487) 0.07 10*3/uL 0.00-0.06 H LYMPH x10^3 (test code = 731-0) 2.52 10*3/uL 1.32-3.29 MONO x10^3 (test code = 742-7) 0.77 10*3/uL 0.33-0.92 EOS x10^3 (test code = 711-2) 0.24 10*3/uL 0.03-0.39 BASO x10^3 (test code = 704-7) 0.06 10*3/uL 0.01-0.07 Lab Interpretation (test code = 65873-5) [facility]normal [facility] [id number] 23:43:00* Test Item Value Reference Range Interpretation Comme nts POCT PREG (test code = 1605) Negative On board controls acceptable with C Line (test code = 3574) Yes POCT PREG LOT # (test code = 3575) [id number] POCT PREG TEST DATE ( test code = 3576) 01/27/2022 Lab Interpretation (test cod e = 37530-0) Normal [facility] Notes Date/Time Note Provider Source 2024-12-23 15:43:06 Images from the original note were not included. Notified pt of physician review from recent monitor. Pt verbalized understanding. Rachid Garcia MD P Cardiology Nurse Holter showed few extrabeats coming from the top chambers of the heart (atrial). The burden is not very high. No significant low heart rate events were seen on the monitor. These results are reassuring. S Devine RN [facility] 2024-12-18 16:44:12 Images from the original note were not included. Notified pt of physician review from stress. Pt verbalized understanding. Rachid Garcia MD P Cardiology Nurse Stress test showed no significant abnormality. This is reassuring. No further cardiac work up is required as of now. MANAGER Mague Devine RN [facility] 2024-12-11 16:27:10 Called to inform patient of the following stress test instructions. Medication list reviewed, no need to hold medications. - NPO 3 hours prior to exam - No caffeine - Wear comfortable clothing and shoes for treadmill exercise Informed patient the test will take place at the [facility]. Patient verbalized understanding. S Castañeda RN [facility] 2024-12-06 13:01:19 This was addressed. PSS verified with patient's insurance that her upcoming test is authorized and does not need to be rescheduled at another location. MANAGER Nathaly Herrera RN [facility] 2024-12-06 11:36:16 May with [facility] calling stating she received request for stress test medications and our facility is OON with insurance she is stating she is needing to speak with a nurse regarding maybe orders being sent to a in network facility to have done. Please advise S [place] [facility] 2024-10-31 19:52:45 Awake, alert oriented X4, respiratory even and unlabored,skin w/d color appropriate for race, moves all ext well, pt encouraged to follow up with pcp and or return as needed Pt given printed and verbal discharge instructions regarding Cannabinoid hyperemesis syndrome, Lower abdominal pain , patient verbralized understanding and signature obtained, patient denies any other concerns. Prescriptions provided Advised to seek medical attention for new/prolonged/worsening of symptoms, No adverse reaction to meds given in ER noted upon discharge Pt ambulated to the lobby with steady gait MANAGER Haleigh Rojas RN [facility] 2024-10-31 15:20:05 Patient states: "I went to the hospital in [place] on the and I was admitted for UTI. It was going on for a week before then and it's on going and just getting worse" Reports abdominal pain, nausea. Pmhx: asthma, MANAGER Paige Cook RN [facility] 2024-10-31 15:15:[address] [facility] Emergency Department Note Patient Name: Sade Mckeon Date of : 1980 44 year old female Treatment Room: [facility] Primary Care Physician: Carley Reyna Patient Escorted by: Self [9] Mode of Arrival: Personal means [1] EMS Treatment Prior to ED Arrival: Travel and Exposure Screening: Symptoms Does patient have any of these symptoms?: (not recorded) Exposure Screening Has patient had contact with someone with a communicable disease in the last month?: (not recorded) Diseases exposed to:: (not recorded) Is Patient ?: (not recorded) Exposure Date: (not recorded) Chief Complaint: Chief Complaint Patient presents with Abdominal Pain History of Present Illness: Pt here for abd pain She had a uti, was admitted for iv abx to osh, then dc on levaquin She is still taking it but now she has pain in stomach when she eats and feels it is wrecking her system She denies fever chills she has some pain in lower abd and upper abd She has dysuria She states compliance w abx and has a dose to take tonight She denies cough Past Medical History/Immunizations: Past Medical History: Diagnosis Date Anxiety and depression Chronic bipolar disorder sees psych- Dr. Huggins Other pulmonary embolism without acute cor pulmonale Allergies: Allergies Allergen Reactions Effexor [Venlafaxine Hcl] Anxiety Iodine Unknown - See comments Pcn [Penicillins] Unknown - See comments Had reaction as a child. Doesn't remember what. Sulfa (Sulfonamide Antibiotics) Unknown - See comments As a child Past Social History: Tobacco Use Every Day; 1 pack/day; Smoked an average of 1 pack/day for 20.0 years; Types: Cigarettes Smokeless Tobacco: Never used smokeless tobacco. Alcohol Use Not Currently. Drug Use Never. Past Surgical History: Past Surgical History: Procedure Laterality Date LAPAROSCOPIC CHOLECYSTECTOMY TUBAL LIGATION Review of Systems: Review of Systems Constitutional: Negative for chills and fever. HENT: Negative. Gastrointestinal: Positive for abdominal pain and nausea. Neurological: Negative. All other systems reviewed and are negative. Physical Exam: ED Triage Vitals [10/31/24 1521] Weight 69.9 kg (154 lb) Actual or estimated Estimated by patient/family report Height 1.727 m (5' 8") BP 116/63 Pulse 74 Resp 16 Temp 36.9 ?C (98.4 ?F) Temp source Oral SpO2 100 % Measured on Room air Physical Exam Vitals and nursing note reviewed. Constitutional: Appearance: She is normal weight. HENT: Head: Normocephalic. Right Ear: External ear normal. Left Ear: External ear normal. Nose: Nose normal. Mouth/Throat: Mouth: Mucous membranes are moist. Eyes: Extraocular Movements: Extraocular movements intact. Pupils: Pupils are equal, round, and reactive to light. Cardiovascular: Rate and Rhythm: Normal rate and regular rhythm. Pulses: Normal pulses. Pulmonary: Effort: Pulmonary effort is normal. Abdominal: General: Abdomen is flat. Palpations: Abdomen is soft. Tenderness: There is abdominal tenderness. Comments: Lower abd tenderness Musculoskeletal: General: No swelling or deformity. Normal range of motion. Cervical back: Normal range of motion. Skin: General: Skin is warm. Capillary Refill: Capillary refill takes less than 2 seconds. Neurological: General: No focal deficit present. Mental Status: She is alert and oriented to person, place, and time. Radiology: No orders to display Lab Results: Lab Results COMP. METABOLIC PANEL (14150) - Abnormal Result Value Ref Range NA 142 135 - 145 mmol/L K 3.6 3.5 - 5.0 mmol/L CL 108 98 - 108 mmol/L CO2 TOTAL 26 23 - 31 mmol/L AGAP 8 2 - 16 BUN 11 7 - 23 mg/dL GLUCOSE 113 (*) 70 - 110 mg/dL CREATININE 0.78 0.50 - 1.04 mg/dL TOTAL BILI 0.2 0.1 - 1.1 mg/dL CALCIUM 9.9 8.6 - 10.6 mg/dL T PROTEIN 6.6 6.3 - 8.2 g/dL ALBUMIN 4.1 3.5 - 5.0 g/dL ALK PHOS 68 34 - 122 U/L ALTv 14 5 - 35 U/L AST(SGOT) 14 13 - 40 U/L eGFR 96.8 mL/min/1.73m2 CBC WITH DIFF - Abnormal WBC 19.62 (*) 4.30 - 11.10 10*3/?L RBC 4.76 3.93 - 5.25 10*6/?L HGB 15.6 (*) 11.6 - 15.0 g/dL HCT 46.2 (*) 35.7 - 45.2 % MCV 97.1 (*) 80.6 - 95.5 fL MCH 32.8 25.9 - 32.8 pg MCHC 33.8 31.6 - 35.1 g/dL RDW-SD 49.3 39.0 - 49.9 fL RDW-CV 13.6 12.0 - 15.5 % PLT 187 166 - 358 10*3/?L MPV 10.9 9.5 - 12.9 fL NRBC/100 WBC 0.0 0.0 - 10.0 /100 WBCs NRBC x10 3 <0.01 10*3/?L GRAN MAT (NEUT) % 71.5 % IMM GRAN % 0.50 % LYMPH % 21.4 % MONO % 4.1 % EOS % 2.2 % BASO % 0.3 % GRAN MAT x10 3 (ANC) 14.05 (*) 1.88 - 7.09 10*3/uL IMM GRAN x10 3 0.09 (*) 0.00 - 0.06 10*3/uL LYMPH x10 3 4.19 (*) 1.32 - 3.29 10*3/uL MONO x10 3 0.80 0.33 - 0.92 10*3/uL EOS x10 3 0.43 (*) 0.03 - 0.39 10*3/uL BASO x10 3 0.06 0.01 - 0.07 10*3/uL URINE DRUG (IMMUNOASSAY) - COMPREHENSIVE DRUG SCREEN - Abnormal AMPHET Negative Negative STEPHANIE U Negative Negative BENZO U Negative Negative Cocaine Metabolite Negative Negative METHADONE Negative Negative OPIATES Negative Negative PCP Negative Negative THC Presumptive Positive (*) Negative POCT TEST - Normal POCT PREG Negative On board controls acceptable with C Line Yes POCT PREG LOT # [id number] POCT PREG TEST DATE 10-14-2025 LIPASE - Normal LIPASE 58 0 - 220 U/L LACTIC ACID WHOLE BLOOD - Normal LACTIC ACID 1.43 0.50 - 2.20 mmol/L URINALYSIS EKG: If EKG completed, see Procedure Note. Orders and Treatments: Orders Placed This Encounter Procedures CT Abdomen pelvis wo contrast Comp. Metabolic Panel (56121) Cbc with Diff Urinalysis POCT Test Lipase Lactic Acid Whole Blood Lactic Acid Whole Blood Urine Drug (Immunoassay) - Comprehensive Drug Screen Orders Placed This Encounter Medications NaCl 0.9% (NS) bolus infusion 1,000 mL ketorolac (TORADOL) injection 15 mg maalox/diphenhydrAMINE:lido caine2 %viscous 1:1:1: suspension (COMPOUNDED) First Provider Eval: ED Events Date/Time Event User Comments 10/31/24 1522 Medical Screening Begins MIYA JIN MD T -- 10/31/24 1522 First Provider Evaluation MIYA JIN MD T -- ED COURSE Diagnosis/Impression as of 10/31/24 1844 Lower abdominal pain Cannabinoid hyperemesis syndrome Procedures: Procedures MDM: Medical Decision Making Pt here for abd pain She had a uti, was admitted for iv abx to osh, then dc on levaquin She is still taking it but now she has pain in stomach when she eats and feels it is wrecking her system She denies fever chills she has some pain in lower abd and upper abd She has dysuria She states compliance w abx and has a dose to take tonight She denies cough Ddx pyleo uti colitis enteritis abdominal cramp Amount and/or Complexity of Data Reviewed Labs: ordered. Radiology: ordered. Risk Prescription drug management. Flowsheet Documentation: Scoring Tools: No data recorded Disposition/Condition: ED Disposition None Discharge Medications: Patient's Medications START taking these medications No medications on file CONTINUE taking these medications which have NOT CHANGED AZELASTINE 137 MCG (0.1 %) NASAL SPRAY Use 1 [place] in each nostril in the morning and 1 [place] in the evening. Use in each nostril as directed CLINDAMYCIN 300 MG CAPSULE Take 1 capsule by mouth 4 (four) times daily. LEVOFLOXACIN 750 MG TABLET Take 1 tablet by mouth every 24 (twenty-four) hours. MONTELUKAST 10 MG TABLET Take 1 tablet by mouth in the morning. OLANZAPINE 10 MG TABLET Take 1 tablet by mouth at bedtime. OMEPRAZOLE 20 MG CAPSULE TAKE 1 CAPSULE BY MOUTH IN THE MORNING ONDANSETRON 4 MG DISINTEGRATING TABLET Take 1 tablet by mouth every 8 (eight) hours as needed for Nausea and Vomiting (N/V). POTASSIUM CITRATE 99 MG CAP Take by mouth. SERTRALINE (ZOLOFT) 100 MG TABLET Take 2 tablets by mouth in the morning. ZIPRASIDONE HCL 40 MG ORAL CAP 1 Cap Oral BID MEALS START taking Modified Medications as Prescribed No medications on file STOP taking these medications No medications on file Follow-up: Electronically signed by: Miya Jin MD 10/31/241745 [facility] 2024-10-31 15:15:00 Patient Care assumed at shift change pending prior to disposition: Imaging Time of Transfer of Care: 6:21 PM Off-going Physician:Ciara Summary: Sade Mckeon is a 44 year old female presenting with chief complaint of abdominal pain pending CT scan. Current interventions: Medications NaCl 0.9% (NS) bolus infusion 1,000 mL (has no administration in time range) ketorolac (TORADOL) injection 15 mg (15 mg Slow IV Push Given 10/31/24 1609) maalox/diphenhydrAMINE:lidoc aine2 %viscous 1:1:1: suspension (COMPOUNDED) (15 mL Oral Given 10/31/24 1610) Results: Labs Reviewed COMP. METABOLIC PANEL (33564) - Abnormal; Notable for the following components: Result Value GLUCOSE 113 (*) All other components within normal limits CBC WITH DIFF - Abnormal; Notable for the following components: WBC 19.62 (*) HGB 15.6 (*) HCT 46.2 (*) MCV 97.1 (*) GRAN MAT x10 3 (ANC) 14.05 (*) IMM GRAN x10 3 0.09 (*) LYMPH x10 3 4.19 (*) EOS x10 3 0.43 (*) All other components within normal limits URINE DRUG (IMMUNOASSAY) - COMPREHENSIVE DRUG SCREEN - Abnormal; Notable for the following components: THC Presumptive Positive (*) All other components within normal limits Narrative: Urine Drug Cutoff Ranges Cocaine: 150 ng/mL Benzodiazepines: 200 ng/mL Methadone: 300 ng/mL Amphetamine: 1,000 ng/mL Opiates: 300 ng/mL Cannabinoids: 50 ng/mL Phencyclidine: 25 ng/mL Barbiturates: 200 ng/mL The results are to be used only for medical (i.e., treatment) purposes. Unconfirmed screening results must not be used for non-medical purposes (e.g., employment testing, legal testing). POCT TEST - Normal LIPASE - Normal LACTIC ACID WHOLE BLOOD - Normal URINALYSIS CT Abdomen pelvis wo contrast Final Result 1. No urinary calcifications or signs of urinary obstruction. 2. No bowel obstruction, appendicitis, free air, or focal loculated intraperitoneal fluid collections. 2. Trace amount of free fluid dependently in the pelvis is nonspecific. 4. Mild hazy opacities in the lung bases bilaterally. These could represent subsegmental areas of atelectasis, however mild patchy infiltrates in the setting of pneumonia I would not be able to bowel. Please correlate clinically. END OF REPORT [id number] Additional Notes: Diagnosis/Impression as of 10/31/24 1844 Lower abdominal pain Cannabinoid hyperemesis syndrome Medical Decision Making CT scan is normal Of note, has been seen and worked up for chornic leukocytosis Labs show + THC some concern for hyperemsis cannabinoid Patient does admit to daily use Haldol given with improvement Discharged with zydis and recommendation to stop smoking Problems Addressed: Cannabinoid hyperemesis syndrome: acute illness or injury with systemic symptoms Lower abdominal pain: acute illness or injury Amount and/or Complexity of Data Reviewed Labs: ordered. Decision-making details documented in ED Course. Radiology: ordered. Decision-making details documented in ED Course. Risk Prescription drug management. Disposition: Discharged Home Social Determinants of Health: none. Diagnoses that have been ruled out: None Diagnoses that are still under consideration: None Final diagnoses: Lower abdominal pain Acute pyelonephritis @EDDX@ Miya Alatorre DO 10/31/241939 [facility] 2024-10-29 13:45:00 Images from the original note were not included. Venipuncture collection performed by clean technique on the left anticubitus. Total of 1 attempts were made. Slight pressure and a bandage/dressing were applied to the site(s). The patient experienced no complications. The following specimens were processed according to instructions and sent to [facility] laboratories per lab order on 10/29/2024 : LT BLUE SST 1 RED LAV PPT DK GREEN (LiHep) DK GREEN (SodH) PETERSON DK BLUE (K2) DK BLUE (S) ACD Blood Culture NIPT/NTD [facility] 2024-10-16 12:18:41 Dr. Ferris, Patient tells me that her insurance called her and told her that she needs to have an ultrasound first before they will approve the CT Abdomen w and wo contrast. Please advise on orders. Thank you Dx: Abdominal pain, right upper quadrant [R10.11] - Primary [facility] Marce Pfeiffer RN [facility] 2024-10-15 10:44:12 MR Abdomen with and without contrast MRCP was ordered at the last GI office visit on 01/25/24. Tried reaching patient, she is not available at the moment. Left message with family member that I will try reaching her again this afternoon. [facility] 2024-10-14 16:25:54 Will rec she call her insurance to find out the reason why it is being denied and call us back with that information and a good number for the doctor to call insurance to appeal [facility] 2024-10-14 15:45:23 Sade Mckeon is a 44 year old female Patient is calling to request a call back to discuss what she needs to do to get MRI Abdomen order approved. Please call patient back at [phone]. MANAGER Shital Guerra [facility] 2024-04-04 10:15:17 I called patient to let her know that a CT was not ordered by Dr. Davison. Patient stated she was told by radiology that she needs an US before getting a MRI. I let patient know I would pass it on to her provider. Arun Lofton RN [facility] 2024-04-03 14:32:51 Sade Mckeon is a 43 year old female calling to let us know radiology told patient she needs a Ultra sound before Ct Mehran Oliveros [facility] 2024-01-25 10:30:00 Images from the original note were not included. Venipuncture collection performed by clean technique on the left anticubitus. Total of 1 attempts were made. Slight pressure and a bandage/dressing were applied to the site(s). The patient experienced no complications. The following specimens were processed according to instructions and sent to [facility] laboratories LT BLUE Lt Green SST 1 RED LAV PPT DK GREEN (L) DK GREEN (S)/// Fibrosure set BLUE,SST & LAV PETERSON DK BLUE (K2) DK BLUE (S) ACD RST BLOOD CULTURE SET BLOOD CULTURE (AFB AND FUNGUS ) VERIFYNOW Monogram TYPENEX (LAV TOP) ARM BAND ON PATIENT Z plasma preservative tube (call lab for tube)ARUP Vasoactive Intestinal Peptide (call lab for tube)ARUP FEDEX ( NIPT) URINE URINE CULTURE APTIMA URINE STOOL [facility] 2023-11-17 14:30:00 Images from the original note were not included. Venipuncture collection performed by clean technique on the right anticubitus. Total of 1 attempts were made. Slight pressure and a bandage/dressing were applied to the site(s). The patient experienced no complications. The following specimens were processed according to instructions and sent to [facility] laboratories per lab order on 11/17/2023: LT BLUE SST 3 RED 1 LAV 1 PPT DK GREEN (LiHep) DK GREEN (SodH) PETERSON DK BLUE (K2) DK BLUE (S) ACD Blood Culture NIPT/NTD Patient has been identified by and name and was provided with cup, antiseptic towelette, and clean catch instructions. 1 urine specimen(s) sent. Unpreserved Urine Culture Aptima tube 1 Other urine [facility] 2023-11-01 09:30:00 Images from the original note were not included. Venipuncture collection performed by clean technique on the right anticubitus. Total of 1 attempts were made. Slight pressure and a bandage/dressing were applied to the site(s). The patient experienced no complications. The following specimens were processed according to instructions and sent to [facility] laboratories per lab order on 11/01/2023 : LT BLUE SST 1 RED LAV 1 PPT DK GREEN (LiHep) DK GREEN (SodH) PETERSON DK BLUE (K2) DK BLUE (S) ACD Blood Culture NIPT/NTD [facility] 2023-06-28 09:27:59 Formatting of this n ote might be different from the original. Patient given written and verbal dc instructions. Verbalized understanding. Signed paper work. Steady gait. [facility] 2023-06-28 09:00:00 Formatting of this n ote might be different from the original. Left lower jaw swelling with pain. [facility] 2023-06-28 08:22:16 Formatting of this n ote might be different from the original. Patient complaining of left lower tooth ache since yesterday. Pain got worse and swelling developed over night. No air way issues. [facility] Carlos Garcia RN [facility]
[2025-06-23 14:52] LABS: Absolute Lymphocytes (CBC) 2.7 K/uL (0.7-4.9); Hematocrit 43.7 % (36.0-45.0); Hemoglobin 15.1 g/dL (12.0-15.0); MCH 31.6 pg (27.0-35.0); MCHC 34.5 g/dL (32.0-36.0); MCV 91.7 fL (80-100); MPV 8.0 fL (7.6-11.3); Nucleated RBC Absolute Count 0.0 (0-0); Nucleated Red Blood Cells % 0.1 % (0-0); RBC Red Blood Cell Count 4.76 M/uL (3.86-4.86); White Blood Count 9.80 thou/uL (4.3-10.9)
[2025-06-23 15:02] LABS: PT Prothrombin Time 12.4 SECONDS (10-13.0); PTT, Activated Partial Thromb 30.8 SECONDS (27.2-37.4); Protime INR 1.1
[2025-06-23 15:11] LABS: ALT/SGPT 20 U/L (13-56); Albumin 3.8 g/dL (3.4-5.0); Albumin/Globulin Ratio 1.2 (1.1-1.8); Alkaline Phosphatase 81 U/L (45-117); Anion Gap 8.1 mEq/L (5.0-15.0); BUN Blood Urea Nitrogen 7 mg/dL (7-18); Bilirubin Indirect, Calculated 0.4 mg/dL (0.2-0.8); Globulin 3.2 g/dL (2.3-3.5); Glucose Level 108 mg/dL (74-106); Potassium 3.1 mEq/L (3.5-5.1)
[2025-06-23 15:12] LABS: AST/SGOT < 10 U/L (15-37)
--- NOTE | 2025-06-23 16:02 | EDPHYS ---
Physician Documentation [facility] Name: Sade Mckeon Age: 45 yrs Sex: Female : 1980 Arrival Date: 06/23/2025 Time: 14:08 Bed 14 Private MD: ED Physician Marciano Álvarez HPI: 06/23 14:36 This 45 yrs old Female presents to ER via EMS with complaints of mental eval. ms3 14:36 45-year-old female with past medical history of asthma, bipolar, schizophrenia, stomach ms3 problems presents to the emergency department via [facility] after her family called stating that her medications were not working. Patient denies suicidal ideations, homicidal ideations, hallucinations.. Historical: - Allergies: 14:27 Iodine; ar8 14:27 PENICILLINS; ar8 14:27 Sulfa (Sulfonamide Antibiotics); ar8 14:27 venlafaxine HCl; ar8 - PMHx: 14:27 Asthma; Bipolar disorder; Schizophrenia; stomach problems; ar8 - Immunization history:: Adult Immunizations unknown. - Infectious Disease History:: Denies. - Social history:: Smoking status: unknown. ROS: 14:36 Cardiovascular: Negative for chest pain, and palpitations. Respiratory: Negative for ms3 shortness of breath, cough, wheezing, and pleuritic chest pain, Abdomen/GI: Negative for abdominal pain, nausea, vomiting, diarrhea, and constipation, Exam: 14:36 Constitutional: This is a well developed, well nourished patient who is awake, alert, ms3 and in no acute distress. Cardiovascular: Regular rate and rhythm with a normal S1 and S2. No gallops, murmurs, or rubs. Normal PMI, no JVD. No pulse deficits. Respiratory: Lungs have equal breath sounds bilaterally, clear to auscultation and percussion. No rales, rhonchi or wheezes noted. No increased work of breathing, no retractions or nasal flaring. Abdomen/GI: Soft, non-tender, with normal bowel sounds. No distension or tympany. No guarding or rebound. No evidence of tenderness throughout. Skin: Warm, dry with normal turgor. Normal color with no rashes, no lesions, and no evidence of cellulitis. 14:36 Psych: Behavior/mood is Withdrawn. Affect is flat, Oriented to person, place, time, Patient has no thoughts/intents to harm self or others. Delusions/hallucinations are not present. 15:40 ECG was reviewed by the Attending Physician. ms3 Vital Signs: 14:24 Weight 68.04 kg; Height 5 ft. 6 in. ; ar8 14:41 BP 124 / 63; Pulse 65; Resp 16; Pulse Ox 100% on R/A; Pain 0/10; ar8 17:49 BP 141 / 70; Pulse 66; Resp 16; Pulse Ox 99% on R/A; Pain 0/10; ar8 14:24 Body Mass Index 24.21 (68.04 kg, 167.64 cm) ar8 14:41 Pain Scale: Adult ar8 17:49 Pain Scale: Adult ar8 MDM: 14:23 Medical Screening Exam initiated ms3 14:36 Differential diagnosis: drug withdrawal. acute psychotic break, depression, psychosis ms3 secondary to non-compliance. 17:19 ED course: Patient's family at bedside stating patient has been out of risperidone and ms3 would like patient to receive her medication and they will take patient home. Patient given Zoloft and Risperdal medications in the emergency department. Patient to follow-up with her psychiatrist in 2 to 3 days. All questions were answered. Return precautions were discussed with patient or family to include worsening symptoms, or any other concerns. On reevaluation patient is not suicidal, homicidal, or having hallucinations at this time. 17:20 Data reviewed: vital signs, nurses notes, lab test result(s), and as a result, I will ms3 discharge patient. I considered the following discharge prescriptions or medication management in the emergency department Medications were administered in the Emergency Department. See MAR. Independent interpretation of the following test(s) in the Emergency Department EKG: See my EKG interpretation above. Counseling: I had a detailed discussion with the patient and/or guardian regarding the historical points, exam findings, and any diagnostic results supporting the discharge/admit diagnosis, lab results, the need for outpatient follow up, to return to the emergency department if symptoms worsen or persist or if there are any questions or concerns that arise at home. Special discussion: I discussed with the patient/guardian in detail that at this point there is no indication for admission to the hospital. It is understood, however, that if the symptoms persist or worsen the patient needs to return immediately for re-evaluation. 06/23 14:24 Order name: Acetaminophen; Complete Time: 17:37 ms3 06/23 14:24 Order name: BMP; Complete Time: 17:37 ms3 06/23 14:24 Order name: CBC with Diff; Complete Time: 17:37 ms3 06/23 14:24 Order name: Hepatic Function; Complete Time: 17:37 ms3 06/23 14:24 Order name: Protime (+inr); Complete Time: 17:37 ms3 06/23 14:24 Order name: Ptt, Activated; Complete Time: 17:37 ms3 06/23 14:24 Order name: Salicylate; Complete Time: 17:37 ms3 06/23 14:24 Order name: EKG - Nurse/Tech; Complete Time: 14:41 ms3 06/23 14:24 Order name: IV Saline Lock; Complete Time: 14:41 ms3 06/23 14:24 Order name: Labs collected and sent; Complete Time: 14:41 ms3 06/23 14:24 Order name: O2 Per Protocol; Complete Time: 14:41 ms3 06/23 14:24 Order name: O2 Sat Monitoring; Complete Time: 14:41 ms3 06/23 14:24 Order name: Suicide Screening ([place]); Complete Time: 14:41 ms3 EC:40 Rate is 60 beats/min. Rhythm is regular. QRS Curtis is Normal. QRS interval is normal. ms3 Clinical impression: Normal ECG. Interpreted by me. Reviewed by me. Administered Medications: 17:43 Drug: sertraline 200 mg PO once Route: PO; ar8 17:50 Follow up: Response: No adverse reaction; Medication administered at discharge. ar8 17:43 Drug: RisperDAL PO 2 mg PO once Route: PO; ar8 17:50 Follow up: Response: No adverse reaction; Medication administered at discharge. ar8 Disposition Summary: 06/23/25 17:17 Discharge Ordered Notes: Location: Home ms3 Condition: Stable(06/23/25 17:17) ms3 Diagnosis - Paranoid schizophrenia ms3 Followup: ms3 - With: Smuan Borden MD - When: 2 - 3 days - Reason: Recheck today's complaints Discharge Instructions: - Discharge Summary Sheet ms3 - Paranoid Personality Disorder ms3 Forms: - Medication Reconciliation Form ms3 - Antibiotic Education ms3 - Prescription Opioid Use ms3 - Patient Portal Instructions ms3 - Leadership Thank You Letter ms3 Prescriptions: - risperidone 2 mg Oral Tablet,disintegrating - take 1 tablet ORAL route daily; 20 tablet; Refills: 0, Product Selection ms3 Permitted Signatures: Dispatcher [employer] EDMS Marciano Álvarez DO DO ms3 Jayro Kruse, RN RN ar8 Corrections: (The following items were deleted from the chart) 14:25 14:25 ACETAMINOPHEN+C.LAB.BRZ ordered. EDMS EDMS 14:25 14:25 BASIC METABOLIC PANEL+C.LAB.BRZ ordered. EDMS EDMS 14:25 14:25 CBC+H.LAB.BRZ ordered. EDMS EDMS 14:25 14:25 ETHANOL+C.LAB.BRZ ordered. EDMS EDMS 14:25 14:25 HEPATIC FUNCTION+C.LAB.BRZ ordered. EDMS EDMS 14:25 14:25 PROTIME (+INR)+COAG.LAB.BRZ ordered. EDMS EDMS 14:25 14:25 PTT, ACTIVATED+COAG.LAB.BRZ ordered. EDMS EDMS 14:25 14:25 SALICYLATE+C.LAB.BRZ ordered. EDMS EDMS 14:25 14:25 URINE DRUG SCREEN+UC.LAB.BRZ ordered. EDMS EDMS 17:17 16:00 Dr ms3 ms3 17:17 16:00 Psych Facility ms3 ms3 17:17 16:00 Higher level of care ms3 ms3 17:17 16:00 Stable ms3 ms3 17:17 16:00 new ms3 ms3 17:17 16:00 are unchanged ms3 ms3 17:17 16:00 Bipolar disorder, unspecified ms3 ms3
--- NOTE | 2025-06-23 16:02 | ER ---
Nurse's Notes [facility] Name: Sade Mckeon Age: 45 yrs Sex: Female : 1980 Arrival Date: 06/23/2025 Time: 14:08 Bed 14 Private MD: Diagnosis: Paranoid schizophrenia Presentation: 06/23 14:24 Chief complaint: EMS states: Per EMS, patient's family called 911 because patient was ar8 sitting outside in the driveway not talking. Patient refuses to answer triage questions, but will deny SI or HI. Patient refuses VS at this time. Coronavirus screen: At this time, the client does not indicate any symptoms associated with coronavirus-19. Ebola Screen: No symptoms or risks identified at this time. Initial Sepsis Screen: Does the patient meet any 2 criteria? No. Patient's initial sepsis screen is negative. Risk Assessment: Do you want to hurt yourself or someone else? Patient reports no desire to harm self or others. Onset of symptoms was June 23, 2025 at 14:00. 14:24 Method Of Arrival: EMS: [facility] ar8 14:24 Acuity: [facility] 3 ar8 14:24 Initial Sepsis Screen: Does the patient have a suspected source of infection? No. ar8 Patient's initial sepsis screen is negative. Triage Assessment: 14:27 General: Appears in no apparent distress. Behavior is quiet, uncooperative. Pain: ar8 Denies pain. Neuro: Level of Consciousness is awake, alert, obeys commands. Respiratory: No deficits noted. Airway is patent Respiratory effort is even, unlabored, Respiratory pattern is regular, symmetrical. Historical: - Allergies: 14:27 Iodine; ar8 14:27 PENICILLINS; ar8 14:27 Sulfa (Sulfonamide Antibiotics); ar8 14:27 venlafaxine HCl; ar8 - PMHx: 14:27 Asthma; Bipolar disorder; Schizophrenia; stomach problems; ar8 - Immunization history:: Adult Immunizations unknown. - Infectious Disease History:: Denies. - Social history:: Smoking status: unknown. Screenin:42 [facility] ED Fall Risk Assessment (Adult) History of falling in the last 3 months, ar8 including since admission No falls in past 3 months (0 pts) Confusion or Disorientation No (0 pts) Intoxicated or Sedated No (0 pts) Impaired Gait No (0 pts) Mobility Assist Device Used No (0 pt) Altered Elimination No (0 pt) Score/Fall Risk Level 0 - 2 = Low Risk Oriented to surroundings, Maintained a safe environment. Abuse screen: Denies threats or abuse. Nutritional screening: No deficits noted. Tuberculosis screening: No symptoms or risk factors identified. Assessment: 14:42 Reassessment: see triage assessment. ar8 Vital Signs: 14:24 Weight 68.04 kg; Height 5 ft. 6 in. ; ar8 14:41 BP 124 / 63; Pulse 65; Resp 16; Pulse Ox 100% on R/A; Pain 0/10; ar8 17:49 BP 141 / 70; Pulse 66; Resp 16; Pulse Ox 99% on R/A; Pain 0/10; ar8 14:24 Body Mass Index 24.21 (68.04 kg, 167.64 cm) ar8 14:41 Pain Scale: Adult ar8 17:49 Pain Scale: Adult ar8 ED Course: 14:13 Patient arrived in ED. bd 14:13 Marciano Álvarez DO is Attending Physician. ms3 14:24 Jayro Kruse RN is Primary Nurse. ar8 14:26 Triage completed. ar8 14:27 Arm band placed on right wrist. ar8 14:37 No provider procedures requiring assistance completed. Inserted saline lock: 22 gauge ar8 in right forearm, using aseptic technique. Blood collected. Flushed with 10 mL NS. 14:41 EKG done, by library cataloging technician. reviewed by Marciano Álvarez DO. ts3 14:42 Bed in low position. Call light in reach. Side rails up X2. Provided Education on: plan ar8 of care. 17:17 Suman Borden MD is Referral Physician. ms3 17:49 IV discontinued, intact, bleeding controlled, No redness/swelling at site. Pressure ar8 dressing applied. Administered Medications: 17:43 Drug: sertraline 200 mg PO once Route: PO; ar8 17:50 Follow up: Response: No adverse reaction; Medication administered at discharge. ar8 17:43 Drug: RisperDAL PO 2 mg PO once Route: PO; ar8 17:50 Follow up: Response: No adverse reaction; Medication administered at discharge. ar8 Medication: 14:42 VIS not applicable for this client. ar8 Outcome: 16:00 ER care complete, transfer ordered by . ms3 17:17 Discharge ordered by MD. ms3 17:50 Discharged to home with family, ar8 17:50 Condition: stable 17:50 Discharge instructions given to patient, family, Instructed on discharge instructions, follow up and referral plans. medication usage, Demonstrated understanding of instructions, follow-up care, medications, Prescriptions given X 1, 17:51 Patient left the ED. ar8 Signatures: Elizabeth Morris Marcus, DO DO ms3 Karen Yoo ts3 Jayro Kruse, RN RN ar8 Corrections: (The following items were deleted from the chart) 14:42 14:42 General: Behavior is ar8 ar8
[2025-06-23] MEDS ORDERED: SERTRALINE HCL 100 MG TAB PO ONE (17:00)
[2025-06-23] MEDS ORDERED: RISPERIDONE 1 MG TABLET PO ONE (17:00)
[2025-06-23 22:18] VITALS: BP 141/70; O2SAT 99
== END 2025-06-23 17:51 | disposition home or self-care (01) ==
LOC: ER 14:08
DX: F20.0 Paranoid schizophrenia (principal)
CPT/HCPCS: 36415; 80048; 80076; 80143; 80179; 85025; 85610; 85730; 93005